=== PATIENT | male | born 1980 | race Hispanic/Latino ===

== ENCOUNTER 2017-06-16 09:20 | Observation (INO) | payer MEDICARE ==
[2017-06-16 09:30] VITALS: TEMP 98.5
[2017-06-16 09:31] VITALS: BMI 27.1
--- NOTE | 2017-06-16 10:39 | ED PDOC ---
HPI: Psych/Substance Abuse Time Seen by Provider: 06/16/17 09:38 Chief Complaint (Nursing): Ingestion, Accidental Chief Complaint (Provider): Ingestion, Accidental History Per: Patient, Family (Mother) Onset/Duration Of Symptoms: Hrs Current Symptoms Are (Timing): Still Present Additional Complaint(s): 36 y/o male with a past medical history of hypertension who presents to the emergency department accompanied by mother who accidentally gave patient 4 tablets of her prescribed medication, 50 mg extended-release Metoprolol (total of 200 mg). As per history from mother, she usually gives him his medication, Norvasc in the morning and Metoprolol 25 mg in the evening but made a mistake this morning, prior to arrival. Denies any further medical complaints. Past Medical History Reviewed: Historical Data, Nursing Documentation, Vital Signs Vital Signs: Last Vital Signs Temp 98.5 F 06/16/17 09:30 Pulse 102 H 06/16/17 09:30 Resp 20 06/16/17 09:30 BP 154/92 H 06/16/17 09:30 Pulse Ox 98 06/16/17 09:30 - Medical History PMH: Anxiety, Depression, HTN, Paranoia, Schizophrenia Denies: Chronic Kidney Disease - Surgical History Surgical History: No Surg Hx - Family History Family History: States: No Known Family Hx - Home Medications Home Medications: Ambulatory Orders Medication Instructions Recorded Benztropine Mesylate 2 mg PO BID 11/25/14 Clozapine 300 mg PO Q12H 11/25/14 Haloperidol [Haldol] 10 mg PO BID 11/25/14 Oxcarbazepine 150 mg PO BID 11/25/14 amLODIPine [Norvasc] 10 mg PO DAILY 11/25/14 Ciprofloxacin HCl [Cipro] 500 mg PO BID 12/14/14 - Allergies Allergies/Adverse Reactions: Allergies Allergy/AdvReac Type Severity Reaction Status Date / Time No Known Allergies Allergy Verified 11/25/14 09:14 Review of Systems ROS Statement: Except As Marked, All Systems Reviewed And Found Negative Constitutional: Positive for: Other (Accidental overdose of prescribed medications. Denies any further medical complaints) Physical Exam - Reviewed Nursing Documentation Reviewed: Yes Vital Signs Reviewed: Yes - Physical Exam Appears: Positive for: Non-toxic, No Acute Distress Head Exam: Positive for: ATRAUMATIC, NORMAL INSPECTION, NORMOCEPHALIC Skin: Positive for: Normal Color, Warm, Dry Eye Exam: Positive for: Normal appearance ENT: Positive for: Normal ENT Inspection Neck: Positive for: Normal, Supple Cardiovascular/Chest: Positive for: Regular Rate, Rhythm. Negative for: Murmur Respiratory: Positive for: Normal Breath Sounds. Negative for: Accessory Muscle Use, Respiratory Distress Gastrointestinal/Abdominal: Positive for: Normal Exam, Soft. Negative for: Tenderness Back: Positive for: Normal Inspection Extremity: Positive for: Normal ROM. Negative for: Pedal Edema Neurologic/Psych: Positive for: Alert, Oriented (x3) - Laboratory Results Result Diagrams: 06/16/17 10:20 06/16/17 10:20 - ECG O2 Sat by Pulse Oximetry: 98 (RA) Pulse Ox Interpretation: Normal Medical Decision Making Medical Decision Making: Time: 10:08 Initial impression: Accidental non-intentional overdose with beta misha Initial plan: --EKG --Acetaminophen --BMP --Magnesium --Salicylate --CBC w/ diff --EKG: Normal sinus with rate of 93 bpm. Normal QRS. No ST Changes. Time: 10:15 --EKG: Normal sinus rate of 70 bpm. Normal QRS. Normal ST changes. --Discussed case with poison control. Recommends observation for hypertension x8 hours because patient took extended release tablets. --No other recommendations were given. Time: 11:57 --Poison control wants patient to stay in ED on ED Observation due to beta misha overdose and monitor for hypertension and other complications --Admit to hospital routine: ED Obs Scribe Attestation: Documented by Maggie Tinoco, acting as a scribe for Soham Hansen MD. Provider Scribe Attestation: All medical record entries made by the Scribe were at my direction and personally dictated by me. I have reviewed the chart and agree that the record accurately reflects my personal performance of the history, physical exam, medical decision making, and the department course for this patient. I have also personally directed, reviewed, and agree with the discharge instructions and disposition. ED OBSERVATION Discharge: Yes Date of observation admission: 06/16/17 Time of observation admission: 11:57 - Observation admission statement Patient is being placed in observation because:: Betablocker overdose - Goals of Observation Goals of observation are:: Monitor for hypertension and other complications - Progress Note Progress Note: 06/16/17 1149 --Magenium Sulfate 1gm/100 ml IVPB 06/16/17 13:27 --Patient resting comfortably. 06/16/17 14:57 --Patient resting comfortably and pending clinical sobriety. Disposition - Clinical Impression Clinical Impression: Accidental drug ingestion - Patient ED Disposition Is Patient to be Admitted: Transfer of Care Counseled Patient/Family Regarding: Studies Performed, Diagnosis - Disposition Disposition: Transfer of Care Disposition Time: 15:00 Condition: GOOD Patient Signed Over To: Jelena Sanon
[2017-06-16 10:41] LABS: BASO # 0.1 K/uL (0.0-0.2); BASO % 0.9 % (0.0-2.0); EOS # 0.4 K/uL (0.0-0.7); EOS % 4.6 % (0.0-4.0); HEMATOCRIT 39.3 % (35.0-51.0); LYMPH % 20.5 % (20.0-40.0); MEAN CELL VOLUME 86.9 fl (80.0-94.0); MEAN CORPUSCULAR HEMOGLOBIN 29.4 pg (27.0-31.0); MEAN CORPUSCULAR HGB CONC 33.9 g/dL (33.0-37.0); MEAN PLATELET VOLUME 8.5 fl (7.2-11.7); MONO # 0.8 K/uL (0.0-0.8); MONO % 8.3 % (0.0-10.0); NEUT # 6.3 K/uL (1.8-7.0); NEUT % 65.7 % (50.0-75.0); RED CELL DISTRIBUTION WIDTH 13.8 % (11.5-14.5); WHITE BLOOD COUNT 9.6 K/uL (4.8-10.8)
[2017-06-16 10:48] LABS: CALCIUM 10.5 mg/dL (8.4-10.2); MAGNESIUM 1.4 MG/DL (1.6-2.3); POTASSIUM 4.1 MMOL/L (3.6-5.0)
[2017-06-16 11:19] VITALS: RESP 16
--- NOTE | 2017-06-16 15:16 | ED PDOC ---
- Laboratory Results Result Diagrams: 06/16/17 10:20 06/16/17 10:20 - ECG O2 Sat by Pulse Oximetry: 98 (RA) Pulse Ox Interpretation: Normal Medical Decision Making Medical Decision Making: Time: 15:00 --Patient endorsed from Dr. Hansen to me. --Placed on ED Observation at 11:57 Any further documentation will be included within ED Obs section of chart. Scribe Attestation: Documented by Maggie Tinoco, acting as a scribe for Jelena Sanon MD. Provider Scribe Attestation: All medical record entries made by the Scribe were at my direction and personally dictated by me. I have reviewed the chart and agree that the record accurately reflects my personal performance of the history, physical exam, medical decision making, and the department course for this patient. I have also personally directed, reviewed, and agree with the discharge instructions and disposition. Disposition - Clinical Impression Clinical Impression: Accidental drug ingestion - POA Present On Arrival: None - Disposition Disposition: Routine/Home Disposition Time: 16:55 Condition: GOOD ED OBSERVATION Discharge: Yes Date of observation admission: 06/16/17 Time of observation admission: 11:57 - Observation admission statement Patient is being placed in observation because:: Betablocker overdose - Goals of Observation Goals of observation are:: Monitor for hypertension and other complications - Progress Note Progress Note: 06/16/17 12:00 Patient is resting in his room. Vitals stable. 06/16/17 13:30 Patient is resting in his room. Vitals stable. 06/16/17 15:00 Patient is resting in his room. Vitals stable. 06/16/17 16:18 Patient is resting in his room. Vitals stable. 06/16/17 17:19 Stable for discharge. Pt asymptomatic. Vitals wnl.
[2017-06-16 17:11] VITALS: BP 157/96; PULSE 86
[2017-06-16 17:19] VITALS: O2SAT 98
--- NOTE | 2017-06-16 20:45 | CARD ---
APPROVED REPORT EKG Measurement Heart [id number] <Conclusion> Normal sinus rhythm Minimal voltage criteria for LVH, may be normal variant Borderline ECG
== END 2017-06-16 17:28 | disposition home or self-care (01) ==
LOC: H.ER 09:20 → H.EROBSV 11:57
PROVIDERS: ADMIT Emergency Medicine; ATTEND Emergency Medicine
DX: T44.7X1A Poisoning by beta-adrenoreceptor antagonists, accidental (unintentional), initial encounter (principal); F20.9 Schizophrenia, unspecified; F32.9 Major depressive disorder, single episode, unspecified; I10 Essential (primary) hypertension; F41.9 Anxiety disorder, unspecified; Y92.009 Unspecified place in unspecified non-institutional (private) residence as the place of occurrence of the external cause
CPT/HCPCS: 80048; 83735; 85025; 93005; 99283; G0378; G0480; J3475

== ENCOUNTER 2018-10-03 16:21 | Inpatient (IN) | payer MEDICARE ==
[2018-10-03 16:21] VITALS: BMI 27.1
[2018-10-03 19:21] LABS: BASO % 0.4 % (0.0-2.0); EOS # 0.3 K/uL (0.0-0.7); EOS % 2.8 % (0.0-4.0); LYMPH # 1.8 K/uL (1.0-4.3); LYMPH % 17.4 % (20.0-40.0); MEAN CELL VOLUME 88.5 fl (80.0-94.0); MEAN CORPUSCULAR HEMOGLOBIN 30.6 pg (27.0-31.0); MEAN CORPUSCULAR HGB CONC 34.6 g/dL (33.0-37.0); MEAN PLATELET VOLUME 8.8 fl (7.2-11.7); MONO # 0.8 K/uL (0.0-0.8); MONO % 7.6 % (0.0-10.0); NEUT # 7.3 K/uL (1.8-7.0); NEUT % 71.8 % (50.0-75.0); RBC 3.6 Mil/uL (4.40-5.90); RED CELL DISTRIBUTION WIDTH 13.8 % (11.5-14.5); WHITE BLOOD COUNT 10.2 K/uL (4.8-10.8)
[2018-10-03 19:28] LABS: ALB/GLOB RATIO 1.3 (1.0-2.1); ALBUMIN 4.4 g/dL (3.5-5.0); CALCIUM 11.1 mg/dL (8.4-10.2)
--- NOTE | 2018-10-03 19:40 | ED PDOC ---
HPI: General Adult Time Seen by Provider: 10/03/18 16:40 Chief Complaint (Nursing): Abnormal Labs Chief Complaint (Provider): Abnormal Labs History Per: Patient, Family (mother) History/Exam Limitations: no limitations Onset/Duration Of Symptoms: Days (x 1) Recently: Treated By A Physician Additional Complaint(s): 38 year old male with a history of bilateral hydronephrosis, schizoaffective disorder, bipolar disorder and HTN presents to the ED for evaluation. Patient reports that he follows up with Dr. León renal and receives regular ultrasounds. After his US today, patient was called by Dr. León's office and urged to visit the ED because of a change in his ultrasound. He denies any pain, nausea, vomiting and leg swelling. PMD: Dr. Harry Linton Past Medical History Reviewed: Historical Data, Nursing Documentation, Vital Signs Vital Signs: Last Vital Signs Temp 98.4 F 10/03/18 16:27 Pulse 103 H 10/03/18 16:27 Resp 20 10/03/18 16:27 BP 127/86 10/03/18 16:27 Pulse Ox 99 10/03/18 16:27 - Medical History PMH: Anxiety, Depression, HTN, Paranoia, Schizophrenia Denies: Chronic Kidney Disease - Surgical History Surgical History: Coronary Stent - Family History Family History: States: Unknown Family Hx - Social History Current smoker - smoking cessation education provided: Yes Alcohol: None Drugs: Denies - Home Medications Home Medications: Ambulatory Orders Medication Instructions Recorded RX: Benztropine Mesylate 2 mg PO BID 11/25/14 RX: Clozapine 300 mg PO Q12H 11/25/14 RX: Haloperidol [Haldol] 10 mg PO BID 11/25/14 RX: Oxcarbazepine 150 mg PO BID 11/25/14 RX: amLODIPine [Norvasc] 10 mg PO DAILY 11/25/14 Imipramine [Imipramine HCl] 25 mg PO BID 10/03/18 Metoprolol Tartrate [Lopressor] 50 mg PO DAILY 10/03/18 - Allergies Allergies/Adverse Reactions: Allergies Allergy/AdvReac Type Severity Reaction Status Date / Time No Known Allergies Allergy Verified 11/25/14 09:14 Review of Systems ROS Statement: Except As Marked, All Systems Reviewed And Found Negative Gastrointestinal: Negative for: Nausea, Vomiting, Abdominal Pain Musculoskeletal: Negative for: Back Pain, Leg Pain Physical Exam - Reviewed Nursing Documentation Reviewed: Yes Vital Signs Reviewed: Yes - Physical Exam Appears: Positive for: Non-toxic, No Acute Distress Head Exam: Positive for: ATRAUMATIC, NORMAL INSPECTION, NORMOCEPHALIC Skin: Positive for: Normal Color, Warm, Dry. Negative for: Rash Eye Exam: Positive for: EOMI, Normal appearance, PERRL ENT: Positive for: Normal ENT Inspection Neck: Positive for: Normal, Painless ROM, Supple Cardiovascular/Chest: Positive for: Regular Rate, Rhythm. Negative for: Murmur Respiratory: Positive for: Normal Breath Sounds. Negative for: Wheezing, Respiratory Distress Gastrointestinal/Abdominal: Positive for: Normal Exam, Soft. Negative for: Tenderness Back: Positive for: Normal Inspection Extremity: Positive for: Normal ROM (upper and lower extremities). Negative for: Deformity, Swelling Neurologic/Psych: Positive for: Alert, Oriented (x 3). Negative for: Motor/Sensory Deficits - Laboratory Results Result Diagrams: 10/03/18 18:58 10/03/18 18:58 - ECG O2 Sat by Pulse Oximetry: 99 (RA) Pulse Ox Interpretation: Normal Medical Decision Making Medical Decision Makin:20 Initial Plan: abnormal US sent for evaluation --CMP --CBC 20:48 --Spoke to Dr. León who reports US showed "severe left greater than right hydronephrosis. in comparisons to previous exam. no renal calculus. suggestive bladder obstruction" requests pt admission. --Consulted Dr. Andersen who is familiar w patient --Patient will be admitted to Dr. Hamm as he is a patient of Dr. Mathur's. 21:47 --Spoke to Dr. Andersen who said patient should be NPO after midnight for stent tomorrow. 21:51 --Patient was accepted by Dr. Hamm, hospitalist. pt and pts mother at bedside aware of admission. Scribe Attestation: Documented by Ada Hodges acting as a scribe for Michelle Lux MD Provider Scribe Attestation: All medical record entries made by the Scribe were at my direction and perso marcos dictated by me. I have reviewed the chart and agree that the record accurately reflects my personal performance of the history, physical exam, medical decision making, and the department course for this patient. I have also personally directed, reviewed, and agree with the discharge instructions and disposition. Disposition - Clinical Impression Clinical Impression: Hypertension, Obstructive uropathy, Renal insufficiency - Patient ED Disposition Is Patient to be Admitted: Yes Counseled Patient/Family Regarding: Studies Performed, Diagnosis, Need For Foll owup - Disposition Disposition Time: 21:30 Condition: STABLE
[2018-10-03 21:09] LABS: URINE BACTERIA RARE (<OCC); URINE BILIRUBIN NEGATIVE (NEGATIVE); URINE BLOOD NEGATIVE (NEGATIVE); URINE CLARITY CLEAR (Clear); URINE COLOR STRAW (YELLOW); URINE GLUCOSE (UA) NEG (NEGATIVE); URINE LEUKOCYTE ESTERASE NEG Leu/uL (Negative); URINE PROTEIN NEGATIVE (NEGATIVE); URINE UROBILINOGEN 0.2-1.0 mg/dL (0.2-1.0)
--- NOTE | 2018-10-03 22:05 | CP.PCM.HP ---
<HongMary ramírez - Last Filed: 10/03/18 23:14> History of Present Illness - History of Present Illness History of Present Illness: 38 year old male with a history of bilateral hydronephrosis, schizophrenia, bipolar disorder and HTN presents to the ED for evaluation of worsening hydronephrosis and renal function. Patient reports that he follows up with Dr. León. Patient went for renal US today and endorses was called by Dr. León's office and urged to visit the ED because of a change in his ultrasound. Also patient states ureteral stent placement on [address] Andersen. Patient reports feeling well and denies any pain, dysuria, hematuria, nausea, vomiting and leg swelling. ER provider called Dr León who reports US showed "severe left greater than right hydronephrosis in comparisons to previous exam. Suggestive bladder obstruction", no renal calculus. PMD: Dr. Harry Mtahur PMH: Anxiety, Depression, HTN, Schizophrenia, CKD Meds: reviewed with pt's mother PSH: b/l ureter stent 2014 NKDA FMH: denies SH: negative for etoh, tobacco or ilicit drugs use Present on Admission - Present on Admission Any Indicators Present on Admission: No Review of Systems - Review of Systems All systems: reviewed and no additional remarkable complaints except (HPI) Past Patient History - Infectious Disease Hx of Infectious Diseases: None - Past Medical History & Family History Past Medical History?: Yes - Past Social History Alcohol: None Drugs: Denies - CARDIAC Hx Hypertension: Yes - PULMONARY Hx Respiratory Disorders: No - NEUROLOGICAL Hx Neurological Disorder: No - HEENT Hx HEENT Problems: Yes Other/Comment: Reading glasses - RENAL Hx Chronic Kidney Disease: No - ENDOCRINE/METABOLIC Hx Endocrine Disorders: Yes Hx Diabetes Mellitus Type 2: No (PATIENT DENIES) Other/Comment: ?borderline DM - INTEGUMENTARY Hx Dermatological Problems: Yes Other/Comment: dry skin. chicken pox at 5 yrs old - MUSCULOSKELETAL/RHEUMATOLOGICAL Hx Musculoskeletal Disorders: No Hx Falls: No - GASTROINTESTINAL Hx Gastrointestinal Disorders: No - GENITOURINARY/GYNECOLOGICAL Hx Genitourinary Disorders: Yes Other/Comment: BILATERAL HYDRONEPHROSIS - PSYCHIATRIC Hx Anxiety: Yes Hx Depression: Yes Hx Paranoia: Yes Hx Schizophrenia: Yes - SURGICAL HISTORY Hx Coronary Stent: Yes - ANESTHESIA Hx Anesthesia: Yes Hx Anesthesia Reactions: No Hx Malignant Hyperthermia: No Meds Allergies/Adverse Reactions: Allergies Allergy/AdvReac Type Severity Reaction Status Date / Time No Known Allergies Allergy Verified 11/25/14 09:14 Physical Exam - Constitutional Appears: No Acute Distress Additional comments: mild anxious - Head Exam Head Exam: NORMAL INSPECTION - Eye Exam Eye Exam: EOMI Pupil Exam: PERRL - Respiratory Exam Respiratory Exam: Clear to Auscultation Bilateral, NORMAL BREATHING PATTERN - Cardiovascular Exam Cardiovascular Exam: REGULAR RHYTHM, +S1, +S2 - GI/Abdominal Exam GI & Abdominal Exam: Distended, Normal Bowel Sounds. absent: Tenderness - Extremities Exam Extremities exam: Negative for: pedal edema - Neurological Exam Neurological exam: Alert, CN II-XII Intact, Oriented x3 - Skin Skin Exam: Dry, Warm Results - Vital Signs Recent Vital Signs: Last Vital Signs Temp 98.4 F 10/03/18 16:27 Pulse 103 H 10/03/18 16:27 Resp 20 10/03/18 16:27 BP 127/86 10/03/18 16:27 Pulse Ox 99 10/03/18 21:52 - Labs Result Diagrams: 10/03/18 18:58 10/03/18 18:58 Labs: Laboratory Results - last 24 hr 10/03/18 10/03/18 10/03/18 18:58 18:58 20:50 WBC 10.2 RBC 3.60 L Hgb 11.0 L D Hct 31.9 L MCV 88.5 MCH 30.6 MCHC 34.6 RDW 13.8 Plt Count 227 MPV 8.8 Neut % (Auto) 71.8 Lymph % (Auto) 17.4 L [place] % (Auto) 7.6 Eos % (Auto) 2.8 Baso % (Auto) 0.4 Neut # (Auto) 7.3 H Lymph # (Auto) 1.8 [place] # (Auto) 0.8 Eos # (Auto) 0.3 Baso # (Auto) 0.0 Sodium 140 Potassium 4.6 Chloride 107 Carbon Dioxide 20 L Anion Gap 18 BUN 42 H Creatinine 2.8 H Est GFR ( Amer) 31 Est GFR (Non-Af Amer) 25 Random Glucose 111 H Calcium 11.1 H Total Bilirubin 0.5 AST 26 ALT 22 Alkaline Phosphatase 80 Total Protein 7.7 Albumin 4.4 Globulin 3.3 Albumin/Globulin Ratio 1.3 Urine Color Straw Urine Clarity Clear Urine pH 6.0 Ur Specific [place] 1.009 Urine Protein Negative Urine Glucose (UA) Neg Urine Ketones Negative Urine Blood Negative Urine Nitrate Negative Urine Bilirubin Negative Urine Urobilinogen 0.2-1.0 Ur Leukocyte Esterase Neg Urine RBC (Auto) < 1 Urine Microscopic WBC 3 Urine Bacteria Rare Assessment & Plan - Assessment and Plan (Free Text) Assessment: 38 yo male patient with PMH of obstructive uropathy s/p bilateral ureter stent, Schizophrenia and CKD admitted due to worsening in renal function and R hydronephrosis. Plan: Hydronephrosis/Obstructive uropathy - afebrile, asymptomatic, VSS - admit to med/surg - Urologist Dr Andersen consulted, patient for OR tomorrow - labs in am - NPO - Nephro Dr León, consulted Acute on CKD - BUN/Cr: 42/2.8 - IV fluids - f/u labs in am - Nephro Dr León, consulted HTN, chronic - controlled - resumed home meds - monitor BP Schizophrenia Bipolar disorder - stable, asymptomatic - continue home meds Case seen and examined with Dr Hamm. <Sahil Hamm - Last Filed: 10/04/18 01:12> Results - Vital Signs Recent Vital Signs: Last Vital Signs Temp 98.4 F 10/03/18 16:27 Pulse 103 H 10/03/18 16:27 Resp 20 10/03/18 16:27 BP 127/86 10/03/18 16:27 Pulse Ox 99 10/03/18 22:25 - Labs Result Diagrams: 10/03/18 18:58 10/03/18 18:58 Labs: Laboratory Results - last 24 hr 10/03/18 10/03/18 10/03/18 18:58 18:58 20:50 WBC 10.2 RBC 3.60 L Hgb 11.0 L D Hct 31.9 L MCV 88.5 MCH 30.6 MCHC 34.6 RDW 13.8 Plt Count 227 MPV 8.8 Neut % (Auto) 71.8 Lymph % (Auto) 17.4 L [place] % (Auto) 7.6 Eos % (Auto) 2.8 Baso % (Auto) 0.4 Neut # (Auto) 7.3 H Lymph # (Auto) 1.8 [place] # (Auto) 0.8 Eos # (Auto) 0.3 Baso # (Auto) 0.0 Sodium 140 Potassium 4.6 Chloride 107 Carbon Dioxide 20 L Anion Gap 18 BUN 42 H Creatinine 2.8 H Est GFR ( Amer) 31 Est GFR (Non-Af Amer) 25 Random Glucose 111 H Calcium 11.1 H Total Bilirubin 0.5 AST 26 ALT 22 Alkaline Phosphatase 80 Total Protein 7.7 Albumin 4.4 Globulin 3.3 Albumin/Globulin Ratio 1.3 Urine Color Straw Urine Clarity Clear Urine pH 6.0 Ur Specific [place] 1.009 Urine Protein Negative Urine Glucose (UA) Neg Urine Ketones Negative Urine Blood Negative Urine Nitrate Negative Urine Bilirubin Negative Urine Urobilinogen 0.2-1.0 Ur Leukocyte Esterase Neg Urine RBC (Auto) < 1 Urine Microscopic WBC 3 Urine Bacteria Rare Blood Type Antibody Screen BBK History Checked 10/03/18 22:24 WBC RBC Hgb Hct MCV MCH MCHC RDW Plt Count MPV Neut % (Auto) Lymph % (Auto) [place] % (Auto) Eos % (Auto) Baso % (Auto) Neut # (Auto) Lymph # (Auto) [place] # (Auto) Eos # (Auto) Baso # (Auto) Sodium Potassium Chloride Carbon Dioxide Anion Gap BUN Creatinine Est GFR ( Amer) Est GFR (Non-Af Amer) Random Glucose Calcium Total Bilirubin AST ALT Alkaline Phosphatase Total Protein Albumin Globulin Albumin/Globulin Ratio Urine Color Urine Clarity Urine pH Ur Specific [place] Urine Protein Urine Glucose (UA) Urine Ketones Urine Blood Urine Nitrate Urine Bilirubin Urine Urobilinogen Ur Leukocyte Esterase Urine RBC (Auto) Urine Microscopic WBC Urine Bacteria Blood Type O POSITIVE Antibody Screen Negative BBK History Checked No verified bt Attending/Attestation - Attestation I have personally seen and examined this patient.: Yes I have fully participated in the care of the patient.: Yes I have reviewed all pertinent clinical information: Yes Notes (Text): 10/04/18 01:01 i saw and examined this patient shoulder to shoulder with Dr Hong. I agree with the assessment and plan outlined above. This is a 38 years old male with hx of chronic renal failure and Hydronephrosis with Bilateral ureteral stent inserted in 2014. His Welder Fitter Apprentice ordered an UltraSound which showed severe left more than right Hydronephrosis. Consult Dr Andersen urologist and Dr León the Welder Fitter Apprentice. The Patient will haven nothing by mouth after midnight and is due for a new Ureteral stent in the AM. IV fluids will be started for Dehydration and Acute on chronic Renal Failure. Continue treatment for Psychiatric disorders. Sahil Hamm MD
[2018-10-03] MEDS ORDERED: CLOZAPINE 300 MG PO SCH ×2 (22:45→22:53)
[2018-10-03] MEDS: Lactated Ringer's 1,000 ML IV SCH (23:21)
[2018-10-04] MEDS: Lactated Ringer's 1,000 ML IV SCH ×3 (04:30→22:30)
[2018-10-04 06:51] LABS: BASO # 0.1 K/uL (0.0-0.2); BASO % 0.7 % (0.0-2.0); EOS # 0.4 K/uL (0.0-0.7); EOS % 3.9 % (0.0-4.0); HEMOGLOBIN 10.8 g/dL (12.0-18.0); LYMPH # 2.4 K/uL (1.0-4.3); LYMPH % 24.7 % (20.0-40.0); MEAN CELL VOLUME 88.5 fl (80.0-94.0); MEAN CORPUSCULAR HEMOGLOBIN 30.4 pg (27.0-31.0); MEAN CORPUSCULAR HGB CONC 34.3 g/dL (33.0-37.0); MEAN PLATELET VOLUME 8.1 fl (7.2-11.7); MONO # 0.9 K/uL (0.0-0.8); MONO % 9.7 % (0.0-10.0); NEUT # 5.8 K/uL (1.8-7.0); RBC 3.56 Mil/uL (4.40-5.90); RED CELL DISTRIBUTION WIDTH 13.7 % (11.5-14.5); WHITE BLOOD COUNT 9.6 K/uL (4.8-10.8)
[2018-10-04 07:11] LABS: ALB/GLOB RATIO 1.4 (1.0-2.1); ALBUMIN 4.1 g/dL (3.5-5.0); CALCIUM 10.9 mg/dL (8.4-10.2)
[2018-10-04 07:33] LABS: INR 1.1; PROTHROMBIN TIME 12.9 Seconds (9.8-13.1)
[2018-10-04 07:35] LABS: PARTIAL THROMBOPLASTIN TIME 38.6 Seconds (25.6-37.1)
--- NOTE | 2018-10-04 09:00 | CP.PCM.PN ---
<Gin Franco - Last Filed: 10/04/18 14:29> Subjective - Date & Time of Evaluation Date of Evaluation: 10/04/18 Time of Evaluation: 08:58 - Subjective Subjective: 38 year old male with a history of bilateral hydronephrosis, schizophrenia, bipolar disorder and HTN presents to the ED for evaluation of worsening hydronephrosis and renal function. Patient reports that he follows up with Dr. León. Patient is aware of the new procedure today- new ureteral stent. Patient admits to being NPO. Denies any acute overnight events. Objective - Vital Signs/Intake and Output Vital Signs (last 24 hours): Temp Pulse Resp BP Pulse Ox 98.5 F 99 H 18 142/90 99 10/04/18 08:13 10/04/18 08:13 10/04/18 08:13 10/04/18 08:13 10/04/18 08:13 - Medications Medications: Current Medications Amlodipine Besylate (Norvasc) 10 mg PO DAILY [facility] Benztropine Mesylate (Cogentin) 1 mg PO BID [facility] Haloperidol (Haldol) 5 mg PO DAILY [facility] Haloperidol (Haldol) 10 mg PO HS [facility] Home Med (Clozapine [Clozapine]) 100 mg PO Q12H [facility] Lactated Ringer's (Lactated Ringer's) 1,000 mls @ 100 mls/hr IV .Q10H [facility] Last Admin: 10/03/18 23:21 Dose: 100 mls/hr Imipramine HCl (Tofranil) 25 mg PO BID [facility] Last Admin: 10/03/18 23:22 Dose: Not Given Metoprolol Tartrate (Lopressor) 50 mg PO DAILY [facility] Oxcarbazepine (Trileptal) 150 mg PO BID [facility] Last Admin: 10/03/18 23:23 Dose: Not Given Ranitidine HCl (Zantac Soln 5ml) 150 mg PO BID [facility] - Labs Labs: 10/04/18 06:35 10/04/18 06:35 PT 12.9 Seconds (9.8-13.1) 10/04/18 06:35 INR 1.1 10/04/18 06:35 APTT 38.6 Seconds (25.6-37.1) H 10/04/18 06:35 - Constitutional Appears: Well, Non-toxic, No Acute Distress - Head Exam Head Exam: ATRAUMATIC - Eye Exam Eye Exam: EOMI, Normal appearance, PERRL Pupil Exam: NORMAL ACCOMODATION - ENT Exam ENT Exam: Mucous Membranes Moist - Neck Exam Neck Exam: Normal Inspection - Respiratory Exam Respiratory Exam: Clear to Ausculation Bilateral, NORMAL BREATHING PATTERN - Cardiovascular Exam Cardiovascular Exam: REGULAR RHYTHM, +S1, +S2 - GI/Abdominal Exam GI & Abdominal Exam: Normal Bowel Sounds - Extremities Exam Extremities Exam: Normal Inspection - Back Exam Back Exam: NORMAL INSPECTION - Neurological Exam Neurological Exam: Alert, Awake Assessment and Plan - Assessment and Plan (Free Text) Assessment: 38 yo male patient with PMH of obstructive uropathy s/p bilateral ureter stent, Schizophrenia and CKD admitted due to worsening in renal function and R hydronephrosis. Plan: Hydronephrosis/Obstructive uropathy - afebrile, asymptomatic, VSS - admit to med/surg - Urologist Dr Andersen consulted, patient for OR today new ureteral stent - Dr Andersen recommends patient be admitted. - CT of the abdomen and pelvis without contrast ordered - Regular diet - Nephro Dr León, consulted Acute on CKD - BUN/Cr: 37/2.9; f/u on daily BMP - IV fluids - Nephro Dr León, consulted; recs appreciated HTN, chronic - controlled - resumed home meds - monitor BP Schizophrenia Bipolar disorder - stable, asymptomatic - continue home meds Code status: unknown <Yanet Carter - Last Filed: 10/04/18 15:46> Objective - Vital Signs/Intake and Output Vital Signs (last 24 hours): Temp Pulse Resp BP Pulse Ox 99.1 F 91 H 18 141/87 98 10/04/18 13:20 10/04/18 13:35 10/04/18 13:35 10/04/18 13:35 10/04/18 13:35 Intake and Output: 10/04/18 10/04/18 06:59 18:59 Intake Total 400 Balance 400 - Medications Medications: Current Medications Amlodipine Besylate (Norvasc) 10 mg PO DAILY [facility] Last Admin: 10/04/18 09:06 Dose: 10 mg Benztropine Mesylate (Cogentin) 1 mg PO BID [facility] Last Admin: 10/04/18 09:07 Dose: Not Given Haloperidol (Haldol) 5 mg PO DAILY [facility] Last Admin: 10/04/18 09:07 Dose: Not Given Haloperidol (Haldol) 10 mg PO HS [facility] Home Med (Clozapine [Clozapine]) 100 mg PO Q12H [facility] Lactated Ringer's (Lactated Ringer's) 1,000 mls @ 100 mls/hr IV .Q10H [facility] Last Admin: 10/04/18 09:43 Dose: 100 mls/hr Lactated Ringer's (Lactated Ringer's) 1,000 mls @ 100 mls/hr IV .Q10H [facility] Imipramine HCl (Tofranil) 25 mg PO BID [facility] Last Admin: 10/04/18 09:05 Dose: Not Given Metoprolol Tartrate (Lopressor) 50 mg PO DAILY [facility] Last Admin: 10/04/18 09:07 Dose: Not Given Oxcarbazepine (Trileptal) 150 mg PO BID [facility] Last Admin: 10/04/18 09:08 Dose: 150 mg Ranitidine HCl (Zantac Soln 5ml) 150 mg PO BID [facility] Last Admin: 10/04/18 09:08 Dose: Not Given - Labs Labs: 10/04/18 06:35 10/04/18 06:35 PT 12.9 Seconds (9.8-13.1) 10/04/18 06:35 INR 1.1 10/04/18 06:35 APTT 38.6 Seconds (25.6-37.1) H 10/04/18 06:35 Attending/Attestation - Attestation I have personally seen and examined this patient.: Yes I have fully participated in the care of the patient.: Yes I have reviewed all pertinent clinical information, including history, physical exam and plan: Yes Notes (Text): 10/04/18 15:45 agree with findings and plan as above. went to OR for stent, however unable to be placed today Urology will continue to follow admit pt , trend chem for renal function. will likely reattempt via IR?
[2018-10-04] MEDS: raNITIdine HCl 150 mg/10 ml Soln Cup PO SCH ×2 (09:08→18:19)
[2018-10-04] MEDS ORDERED: Propofol 10 mg/ml Inj (20 ML) ONE (11:07)
[2018-10-04] MEDS ORDERED: Midazolam 2 MG/2 ML VIAL ONE (11:07)
[2018-10-04] MEDS ORDERED: Lactated Ringer's 1,000 ML IV ONE (11:25)
[2018-10-04] MEDS ORDERED: cefTRIAXone (Rocephin) 1 gm Inj ONE (11:30)
[2018-10-04] MEDS ORDERED: Iohexol 240 200 ML IJ ONE (11:30)
[2018-10-04] MEDS ORDERED: cefTRIAXone (Rocephin) 1 gm Inj IM ONE (11:30)
[2018-10-04] MEDS ORDERED: HYDROmorphone 0.5 mg/0.5 ml ISec IVP PRN (12:25)
--- NOTE | 2018-10-04 13:15 | RAD ---
HISTORY: pre op COMPARISON: Chest x-ray performed 11/27/14 TECHNIQUE: Chest PA and lateral FINDINGS: LUNGS: No focal consolidation. Please note that chest x-ray has limited sensitivity for the detection of pulmonary masses. PLEURA: No significant pleural effusion identified. No definite pneumothorax . CARDIOVASCULAR: Heart size appears within normal limits. No atherosclerotic calcification present. OSSEOUS STRUCTURES: Degenerative changes. VISUALIZED UPPER ABDOMEN: Unremarkable. OTHER FINDINGS: None. IMPRESSION: No focal consolidation.
--- NOTE | 2018-10-04 15:28 | CARD ---
APPROVED REPORT Date of service: 10/03/2018 EKG Measurement Heart [id number] <Conclusion> Normal sinus rhythm Nonspecific T wave abnormality Abnormal ECG
--- NOTE | 2018-10-04 15:28 | RAD ---
Date of service: 10/04/2018 PROCEDURE: Intraoperative Fluoroscopy. HISTORY: CYSTOSCOPY FINDINGS: Fluoroscopic assistance was provided. Please refer to the operative report for additional details.
--- NOTE | 2018-10-04 16:16 | CP.PCM.CON ---
History of Present Illness - History of Present Illness History of Present Illness: This patient who is 38 years of age male presented to the emergency room with worsening bilateral hydronephrosis when he was done yesterday as outpatient and patient was sent to the ER for further evaluation. Patient has history of renal failure with obstructive uropathy and bilateral stent was inserted 2015 temporarily at that time and the ultrasound showed worsening of the hydronephrosis. Has history of schizophrenia and he is taking multiple medication as noted also history of constipation ER provider called Dr León who reports US showed "severe left greater than right hydronephrosis in comparisons to previous exam. Suggestive bladder obstruction", no renal calculus. PMH: Anxiety, Depression, HTN, Schizophrenia, CKD Meds: reviewed with pt's mother PSH: b/l ureter stent 2014 NKDA FMH: denies SH: negative for etoh, tobacco or ilicit drugs use Review of Systems - Constitutional Constitutional: Anorexia. absent: Chills - Cardiovascular Cardiovascular: absent: Acrocyanosis, Chest Pain, Dyspnea - Respiratory Respiratory: absent: Cough, Dyspnea - Gastrointestinal Gastrointestinal: absent: Abdominal Pain, Coffee Ground Emesis - Genitourinary Genitourinary: Nocturia - Musculoskeletal Musculoskeletal: absent: Back Pain, Numbness - Integumentary Integumentary: absent: Alopecia - Neurological Neurological: absent: Confusion, Dizziness, Focal Weakness - Psychiatric Psychiatric: As Per HPI, Anxiety - Endocrine Endocrine: absent: Fatigue - Hematologic/Lymphatic Hematologic: absent: Easy Bleeding Past Patient History - Infectious Disease Hx of Infectious Diseases: None - Past Medical History & Family History Past Medical History?: Yes - Past Social History Alcohol: None Drugs: Denies - CARDIAC Hx Hypertension: Yes - PULMONARY Hx Respiratory Disorders: No - NEUROLOGICAL Hx Neurological Disorder: No - HEENT Hx HEENT Problems: Yes Other/Comment: Reading glasses - RENAL Hx Chronic Kidney Disease: No - ENDOCRINE/METABOLIC Hx Endocrine Disorders: Yes Hx Diabetes Mellitus Type 2: No (PATIENT DENIES) Other/Comment: ?borderline DM - INTEGUMENTARY Hx Dermatological Problems: Yes Other/Comment: dry skin. chicken pox at 5 yrs old - MUSCULOSKELETAL/RHEUMATOLOGICAL Hx Musculoskeletal Disorders: No Hx Falls: No - GASTROINTESTINAL Hx Gastrointestinal Disorders: No - GENITOURINARY/GYNECOLOGICAL Hx Genitourinary Disorders: Yes Other/Comment: BILATERAL HYDRONEPHROSIS - PSYCHIATRIC Hx Anxiety: Yes Hx Depression: Yes Hx Paranoia: Yes Hx Schizophrenia: Yes - SURGICAL HISTORY Hx Coronary Stent: Yes - ANESTHESIA Hx Anesthesia: Yes Hx Anesthesia Reactions: No Hx Malignant Hyperthermia: No Meds Allergies/Adverse Reactions: Allergies Allergy/AdvReac Type Severity Reaction Status Date / Time No Known Allergies Allergy Verified 11/25/14 09:14 - Medications Medications: Current Medications Amlodipine Besylate (Norvasc) 10 mg PO DAILY [facility] Last Admin: 10/04/18 09:06 Dose: 10 mg Benztropine Mesylate (Cogentin) 1 mg PO BID [facility] Last Admin: 10/04/18 09:07 Dose: Not Given Haloperidol (Haldol) 5 mg PO DAILY [facility] Last Admin: 10/04/18 09:07 Dose: Not Given Haloperidol (Haldol) 10 mg PO HS [facility] Home Med (Clozapine [Clozapine]) 100 mg PO Q12H [facility] Lactated Ringer's (Lactated Ringer's) 1,000 mls @ 100 mls/hr IV .Q10H [facility] Last Admin: 10/04/18 09:43 Dose: 100 mls/hr Lactated Ringer's (Lactated Ringer's) 1,000 mls @ 100 mls/hr IV .Q10H [facility] Imipramine HCl (Tofranil) 25 mg PO BID [facility] Last Admin: 10/04/18 09:05 Dose: Not Given Metoprolol Tartrate (Lopressor) 50 mg PO DAILY [facility] Last Admin: 10/04/18 09:07 Dose: Not Given Oxcarbazepine (Trileptal) 150 mg PO BID [facility] Last Admin: 10/04/18 09:08 Dose: 150 mg Ranitidine HCl (Zantac Soln 5ml) 150 mg PO BID [facility] Last Admin: 10/04/18 09:08 Dose: Not Given Physical Exam - Constitutional Appears: No Acute Distress - ENT Exam ENT Exam: Mucous Membranes Dry - Neck Exam Neck exam: Negative for: Lymphadenopathy - Respiratory Exam Respiratory Exam: NORMAL BREATHING PATTERN. absent: Chest Wall Tenderness - Cardiovascular Exam Cardiovascular Exam: absent: Gallop, REGULAR RHYTHM, JVD, Rubs - Extremities Exam Extremities exam: Negative for: calf tenderness - Back Exam Back exam: absent: CVA tenderness (L), CVA tenderness (R) - Neurological Exam Neurological exam: Alert - Psychiatric Exam Psychiatric exam: Normal Affect Results - Vital Signs Recent Vital Signs: Last Vital Signs Temp 99.1 F 10/04/18 13:20 Pulse 91 H 10/04/18 13:35 Resp 18 10/04/18 13:35 BP 141/87 10/04/18 13:35 Pulse Ox 98 10/04/18 13:35 - Labs Result Diagrams: 10/04/18 06:35 10/04/18 06:35 Labs: Laboratory Results - last 24 hr 10/03/18 10/03/18 10/03/18 18:58 18:58 20:50 WBC 10.2 RBC 3.60 L Hgb 11.0 L D Hct 31.9 L MCV 88.5 MCH 30.6 MCHC 34.6 RDW 13.8 Plt Count 227 MPV 8.8 Neut % (Auto) 71.8 Lymph % (Auto) 17.4 L [place] % (Auto) 7.6 Eos % (Auto) 2.8 Baso % (Auto) 0.4 Neut # (Auto) 7.3 H Lymph # (Auto) 1.8 [place] # (Auto) 0.8 Eos # (Auto) 0.3 Baso # (Auto) 0.0 PT INR APTT Sodium 140 Potassium 4.6 Chloride 107 Carbon Dioxide 20 L Anion Gap 18 BUN 42 H Creatinine 2.8 H Est GFR ( Amer) 31 Est GFR (Non-Af Amer) 25 Random Glucose 111 H Calcium 11.1 H Total Bilirubin 0.5 AST 26 ALT 22 Alkaline Phosphatase 80 Total Protein 7.7 Albumin 4.4 Globulin 3.3 Albumin/Globulin Ratio 1.3 Urine Color Straw Urine Clarity Clear Urine pH 6.0 Ur Specific [place] 1.009 Urine Protein Negative Urine Glucose (UA) Neg Urine Ketones Negative Urine Blood Negative Urine Nitrate Negative Urine Bilirubin Negative Urine Urobilinogen 0.2-1.0 Ur Leukocyte Esterase Neg Urine RBC (Auto) < 1 Urine Microscopic WBC 3 Urine Bacteria Rare Blood Type Blood Type Confirm Antibody Screen BBK History Checked 10/03/18 10/04/18 10/04/18 22:24 06:35 06:35 WBC 9.6 RBC 3.56 L Hgb 10.8 L Hct 31.5 L MCV 88.5 MCH 30.4 MCHC 34.3 RDW 13.7 Plt Count 219 MPV 8.1 Neut % (Auto) 61.0 Lymph % (Auto) 24.7 [place] % (Auto) 9.7 Eos % (Auto) 3.9 Baso % (Auto) 0.7 Neut # (Auto) 5.8 Lymph # (Auto) 2.4 [place] # (Auto) 0.9 H Eos # (Auto) 0.4 Baso # (Auto) 0.1 PT INR APTT Sodium 142 Potassium 4.0 Chloride 109 H Carbon Dioxide 20 L Anion Gap 17 BUN 37 H Creatinine 2.9 H Est GFR ( Amer) 29 Est GFR (Non-Af Amer) 24 Random Glucose 94 Calcium 10.9 H Total Bilirubin 0.2 AST 16 L D ALT 22 Alkaline Phosphatase 76 Total Protein 7.2 Albumin 4.1 Globulin 3.0 Albumin/Globulin Ratio 1.4 Urine Color Urine Clarity Urine pH Ur Specific [place] Urine Protein Urine Glucose (UA) Urine Ketones Urine Blood Urine Nitrate Urine Bilirubin Urine Urobilinogen Ur Leukocyte Esterase Urine RBC (Auto) Urine Microscopic WBC Urine Bacteria Blood Type O POSITIVE Blood Type Confirm Antibody Screen Negative BBK History Checked No verified bt 10/04/18 10/04/18 06:35 10:28 WBC RBC Hgb Hct MCV MCH MCHC RDW Plt Count MPV Neut % (Auto) Lymph % (Auto) [place] % (Auto) Eos % (Auto) Baso % (Auto) Neut # (Auto) Lymph # (Auto) [place] # (Auto) Eos # (Auto) Baso # (Auto) PT 12.9 INR 1.1 APTT 38.6 H Sodium Potassium Chloride Carbon Dioxide Anion Gap BUN Creatinine Est GFR ( Amer) Est GFR (Non-Af Amer) Random Glucose Calcium Total Bilirubin AST ALT Alkaline Phosphatase Total Protein Albumin Globulin Albumin/Globulin Ratio Urine Color Urine Clarity Urine pH Ur Specific [place] Urine Protein Urine Glucose (UA) Urine Ketones Urine Blood Urine Nitrate Urine Bilirubin Urine Urobilinogen Ur Leukocyte Esterase Urine RBC (Auto) Urine Microscopic WBC Urine Bacteria Blood Type Blood Type Confirm O POSITIVE Antibody Screen BBK History Checked Assessment & Plan (1) Hypertension Status: Acute (2) Obstructive uropathy Status: Acute (3) Acute kidney injury Assessment and Plan: Acute kidney injury superimposed on chronic kidney disease perhaps related to obstructive uropathy with bilateral hydronephrosis worsening comparing to the previous one. Patient just came out of the operating room I am told by the nurse that he has suprapubic and extraction of the stone although no . report from the urologist on the chart as of yet The plan Continue IV fluid Repeat BMP tomorrow its expected that his kidney function will improve perhaps. And the patient keeps saying he is going home now?? Order serum phosphorus and PTH for staying in the hospital. Status: Acute (4) Schizophrenia Status: Acute
--- NOTE | 2018-10-04 20:50 | CP.PCM.PN ---
Subjective - Date & Time of Evaluation Date of Evaluation: 10/04/18 Time of Evaluation: 20:48 - Subjective Subjective: UROLOGY pt has suprapubic ube placed because i could not access bladdere out flow tonight almost clear. advise iv antgibiotics monitor I asnd O and update labs in am Objective - Vital Signs/Intake and Output Vital Signs (last 24 hours): Temp Pulse Resp BP Pulse Ox 98.8 F 112 H 20 148/97 H 98 10/04/18 19:15 10/04/18 19:15 10/04/18 19:15 10/04/18 19:15 10/04/18 19:15 Intake and Output: 10/04/18 10/05/18 18:59 06:59 Intake Total 700 Output Total 750 Balance -50 - Medications Medications: Current Medications Amlodipine Besylate (Norvasc) 10 mg PO DAILY [facility] Last Admin: 10/04/18 09:06 Dose: 10 mg Benztropine Mesylate (Cogentin) 1 mg PO BID [facility] Last Admin: 10/04/18 18:19 Dose: 1 mg Haloperidol Lactate (Haldol) 10 mg PO HS [facility] Haloperidol Lactate (Haldol) 5 mg PO DAILY [facility] Home Med (Clozapine [Clozapine]) 100 mg PO Q12H [facility] Lactated Ringer's (Lactated Ringer's) 1,000 mls @ 100 mls/hr IV .Q10H [facility] Last Admin: 10/04/18 09:43 Dose: 100 mls/hr Lactated Ringer's (Lactated Ringer's) 1,000 mls @ 100 mls/hr IV .Q10H [facility] Imipramine HCl (Tofranil) 25 mg PO BID [facility] Last Admin: 10/04/18 18:20 Dose: 25 mg Metoprolol Tartrate (Lopressor) 50 mg PO DAILY [facility] Last Admin: 10/04/18 09:07 Dose: Not Given Oxcarbazepine (Trileptal) 150 mg PO BID [facility] Last Admin: 10/04/18 17:18 Dose: 150 mg Ranitidine HCl (Zantac Soln 5ml) 150 mg PO BID [facility] Last Admin: 10/04/18 18:19 Dose: 150 mg - Labs Labs: 10/04/18 06:35 10/04/18 06:35 PT 12.9 Seconds (9.8-13.1) 10/04/18 06:35 INR 1.1 10/04/18 06:35 APTT 38.6 Seconds (25.6-37.1) H 10/04/18 06:35
[2018-10-04] MEDS: Haloperidol Lactate 2 mg/ml Liquid PO SCH (21:32)
[2018-10-05] MEDS: Lactated Ringer's 1,000 ML IV SCH ×4 (00:44→22:18)
--- NOTE | 2018-10-05 02:20 | PN ---
DATE: 10/04/2018 POSTOP PROGRESS NOTE This is a gentleman who earlier today I attempted cystoscopy and tried to place double-J stent, and right from the beginning, the access into the bladder was next to impossible. He has a severe welling up of the prostatic floor, and so from the level of the prostatic urethra, I was not able to safely push the cystoscope into the bladder. He had some bladder neck stones that were taken out. By that time with this manipulation, he then became significantly hematuric. At that point, I could not see anything further. I did a retrograde cystogram and did see that the bladder was severely distended, and so at that time, I put in a suprapubic tube and the urine began to flow from that area. Postoperatively, I spoke to several people, I spoke to Dr. Villafuerte for Interventional Radiology considering the possibility of doing bilateral nephrostomy tube placement, and in the discussion, we will keep that as a thought in mind but give the attempt at the decompression via the suprapubic tube to see if that will help start to improve the clinical numbers of BUN and creatinine and then hopefully decompress the kidneys as a consequence. If he does not have sufficient urinary flow within the next 24 hours then it might be prudent to insert the suprapubic tubes. Beyond there, I spoke with Dr. Hamm considering a short-term care and knowing that sometimes when significant obstructive uropathy is unblocked he might develop a post-obstructive diuresis, so I indicated to him about managing hourly outputs and making sure that he has enough IV fluid support in case the post-obstructive diuresis becomes significant. In the morning, I suggested that they repeat a blood work to see if there is any change in his creatinine and assess the urine output as needed. These are the comments as of Sunday night 9 o'clock. Chloe Andersen MD
--- NOTE | 2018-10-05 05:56 | CON ---
DATE: 10/03/2018 HISTORY OF PRESENT ILLNESS: This is a 38-year-old male patient who was in the emergency room, I received a call about this patient having severe left and right hydronephrosis. Apparently, he has a history of this condition, but from his last evaluation, the report reads that the condition has worsened significantly. His creatinine at time in the emergency room now is 2.8, prior to this it was 1.4. The patient has some psychological disorders but is not feeling any acute pain at this time. His only comments from his mom is that the patient is constantly voiding and have the urge to void every several minutes. He also has a history of severe constipation that he only goes once a week, and at that time, it is very difficult for him to have bowel movements. PLAN: I recommended that at this time we will prepare the patient for cystoscopy and placement of double J stents to decompress the kidney. Hopefully, that will help reduce the BUN and creatinine and bring him into a more stable condition. This will be scheduled first thing for Sunday. Chloe Andersen MD
--- NOTE | 2018-10-05 07:51 | OP ---
PROCEDURE DATE: 10/04/2018 PREOPERATIVE DIAGNOSIS: Bilateral hydronephrosis. POSTOPERATIVE DIAGNOSES: Bilateral hydronephrosis, urinary retention, bladder neck calculi. PROCEDURE PERFORMED: Cystoscopy with removal of multiple bladder neck calculi and insertion of a suprapubic tube. SURGEON: Chloe Andersen MD. DESCRIPTION OF PROCEDURE: The patient placed in the operating table in dorsal lithotomy position. Given general anesthesia, the area of the groin was draped and prepped. At this time I tried with a #21 cystoscope to enter into the bladder atraumatically. I got to the level of the verumontanum. At that point, the bladder was way up high. I could not negotiate the cystoscope safely over this mass effect. It is pushing from the bottom and not letting me gain access into the bladder. As I went through, I saw some bladder neck stones which I removed, probably about 4 or 5 mm in size, but I could not gain safely access into the bladder. I did a retrograde with some contrast and I could see that the bladder was severely distended and did not appear to be extravasating any dye outside the bladder confines. So at this point, then I removed the cystoscope after multiple tries to try to get it in. I put in a suprapubic tube from the top of Alena catheter and the urine outflow was only a very pale pink, but at least it started to come out and I fixed it into the lower portion of the abdomen. At this point the suprapubic tube will stay in for a while to see if the patient decompresses adequately. The cystoscope was removed. The patient then was taken from the operating room in good condition. Chloe Andersen MD
[2018-10-05] MEDS: Haloperidol Lactate 2 mg/ml Liquid PO SCH ×2 (09:45→21:29)
[2018-10-05] MEDS: raNITIdine HCl 150 mg/10 ml Soln Cup PO SCH ×2 (09:49→16:38)
[2018-10-05 09:53] LABS: CALCIUM 9.4 mg/dL (8.4-10.2)
[2018-10-05 11:21] LABS: IRON 39 ug/dL (49-181)
[2018-10-05 11:31] LABS: % IRON SATURATION 16 % (20-55); TOTAL IRON BINDING CAPACITY 247 ug/dL (250-450)
--- NOTE | 2018-10-05 11:46 | CP.PCM.PN ---
Subjective - Date & Time of Evaluation Date of Evaluation: 10/05/18 Time of Evaluation: 10:35 - Subjective Subjective: 38 y/o M was evaluated and examined by bedside. Pt reports feeling well, no acute complaints. Suprapubic catheter in placed, pink urine present on bag. Cytoscopy with removal of multiple bladder neck calculi. Pt afebrile, tolerating PO, with NO acute events overnight. Objective - Vital Signs/Intake and Output Vital Signs (last 24 hours): Temp Pulse Resp BP Pulse Ox 98.6 F 99 H 20 118/82 98 10/05/18 08:43 10/05/18 08:43 10/05/18 08:43 10/05/18 08:43 10/05/18 08:43 Intake and Output: 10/05/18 10/05/18 06:59 18:59 Intake Total 1100 Output Total 850 Balance 250 - Medications Medications: Current Medications Amlodipine Besylate (Norvasc) 10 mg PO DAILY [facility] Last Admin: 10/05/18 09:48 Dose: 10 mg Benztropine Mesylate (Cogentin) 1 mg PO BID [facility] Last Admin: 10/05/18 09:46 Dose: 1 mg Haloperidol Lactate (Haldol) 10 mg PO HS [facility] Last Admin: 10/04/18 21:32 Dose: 10 mg Haloperidol Lactate (Haldol) 5 mg PO DAILY [facility] Last Admin: 10/05/18 09:45 Dose: 5 mg Home Med (Clozapine [Clozapine]) 100 mg PO Q12H [facility] Lactated Ringer's (Lactated Ringer's) 1,000 mls @ 100 mls/hr IV .Q10H [facility] Last Admin: 10/05/18 00:44 Dose: 100 mls/hr Lactated Ringer's (Lactated Ringer's) 1,000 mls @ 100 mls/hr IV .Q10H [facility] Last Admin: 10/05/18 09:08 Dose: 100 mls/hr Imipramine HCl (Tofranil) 25 mg PO BID [facility] Last Admin: 10/05/18 10:40 Dose: 25 mg Metoprolol Tartrate (Lopressor) 50 mg PO DAILY [facility] Last Admin: 10/05/18 09:46 Dose: 50 mg Oxcarbazepine (Trileptal) 150 mg PO BID [facility] Last Admin: 12/22/18 09:49 Dose: 150 mg Ranitidine HCl (Zantac Soln 5ml) 150 mg PO BID [facility] Last Admin: 10/05/18 09:49 Dose: 150 mg Tamsulosin HCl (Flomax) 0.4 mg PO DAILY [facility] Last Admin: 10/05/18 10:40 Dose: 0.4 mg - Labs Labs: 10/04/18 06:35 10/05/18 09:02 PT 12.9 Seconds (9.8-13.1) 10/04/18 06:35 INR 1.1 10/04/18 06:35 APTT 38.6 Seconds (25.6-37.1) H 10/04/18 06:35 - Constitutional Appears: Well, No Acute Distress - Head Exam Head Exam: ATRAUMATIC, NORMAL INSPECTION - Eye Exam Eye Exam: EOMI, PERRL - ENT Exam ENT Exam: Mucous Membranes Moist - Neck Exam Neck Exam: Full ROM, Normal Inspection. absent: Lymphadenopathy - Respiratory Exam Respiratory Exam: NORMAL BREATHING PATTERN. absent: Rhonchi, Wheezes, Respiratory Distress - Cardiovascular Exam Cardiovascular Exam: REGULAR RHYTHM, +S1, +S2 - GI/Abdominal Exam GI & Abdominal Exam: Soft, Normal Bowel Sounds. absent: Guarding, Rigid, Tender ness - Extremities Exam Extremities Exam: Full ROM, Normal Inspection. absent: Calf Tenderness, Pedal Edema - Back Exam Back Exam: absent: CVA tenderness (L), CVA tenderness (R) - Neurological Exam Neurological Exam: Alert, Awake, Oriented x3 Assessment and Plan - Assessment and Plan (Free Text) Assessment: 38 y/o M with a PMHx of obstructive uropathy s/p bilateral ureter stent, Schizophrenia and CKD admitted due to worsening in renal function and R hydronephrosis. S/P Cytoscopy with removal of multiple bladder neck calculi and supra-pubic catheter placement. PLAN: >Hydronephrosis/Obstructive uropathy --Stable --S/P Cytoscopy with removal of multiple bladder neck calculi and supra-pubic catheter placement. --Urology on board, Dr Andersen. --Bilateral nephrostomy tube placement, is being considered. --Nephrology on board, Dr León. --Monitor urine output. --Monitor BMP. >Acute on CKD --most probably due to obstructive uropathy. --Creatinine level slowly improving, from 2.8 2 days ago to 2.5-today. --IV LR at 100mL/hr. --Nephrology on board, Dr León. --Monitor urine output. --Monitor BMP. >HTN, chronic - controlled - resumed home meds - monitor BP >Schizophrenia/Bipolar disorder - stable, asymptomatic - continue home meds Case discussed with Dr Ela Keene PGY-2
[2018-10-05 11:58] LABS: FERRITIN 80.9 ng/Ml (17.9-464)
--- NOTE | 2018-10-05 13:13 | CP.PCM.PN ---
Subjective - Date & Time of Evaluation Date of Evaluation: 10/05/18 Time of Evaluation: 13:11 - Subjective Subjective: Nephrology Consultation Note Assessment: Stable Acute Kidney Injury (N17.9) likely due to obs uropathy, bladder neck calculi Hypertensive Chronic Kidney Disease (I12.9) Chronic Kidney Disease (N18.3) Stage 3 Anemia (D64.9), acidosis, constipation schizophrenia Plan No acute need for renal replacement therapy at this time. Hypertension control with meds as ordered. Maintain hemodynamics stable. Avoid hypotension. Patient not on ACEI/ARB due to recent SKIP Monitor Input/Output, daily weights and renal function with basic metabolic panel startd lactulose Check urine analysis, spot protein/creatinine, albumin/creatinine ratio Check HIV/Hep B and Hep C serology Anemia work up with TSAT/Ferritin/Vitamin B12/folate Check for 25-OH vitamin D, iPTH, phosphorus level. Dose meds/antibiotics for reduced GFR. Avoid fleets enema/magnesium based laxatives. Avoid nephrotoxins/NSAIDs/ iodinated contrast (unless needed emergently) Glycemic control Further work up for as per primary team Thanks for allowing me to participate in care of your patient. Will follow patient with you. Please call if any Qs Dr Jerry Delgado Office: [phone] Subjective: Noted events overnight. Patients feels okay. Denies chest pain, palpitation, shortness of breath, leg swelling. All other negative mother reports constipation Physical Examination: General Appearance: Comfortable, in no acute respiratory distress, co-operative . Vitals reviewed and noted as below Head; Atraumatic, normocephalic ENT: no ulcers no thrush. Tongue is midline. Oropharynx: no rash or ulcers. EYES: Pupils are equal, round and reactive to light accommodation. Eye muscles and extraocular movement intact. Sclera is anicteric. Neck; supple no lymphadenopathy, no thyromegaly or bruit Lungs: Normal respiratory rate/effort. Breath sounds bilateral equal and clear Heart: Normal rate. s1s2 normal. No rub or gallop. Extremities: no edema. No varicose veins Neurological: Patient is alert, awake and oriented to person, place and time. No focal deficit. Strength bilateral appropriate and equal Skin: Warm and dry. Normal turgor. No rash. Palpitation: Normal elasticity for age Abdomen: Abdomen is soft. Bowel sounds +. There is no abdominal tenderness, no guarding/rigidity no organomegaly Psych: limited insight and anxious MSK: no joint tenderness or swelling. Digits and nails normal, no deformity : kidney or bladder not palpable. has SP catheter Labs/imaging reviewed. Past medical history, past surgical history, family history, social history, allergy reviewed and noted as below Family hx: no hx of CKD. Rest non-contributory Objective - Vital Signs/Intake and Output Vital Signs (last 24 hours): Temp Pulse Resp BP Pulse Ox 98.6 F 99 H 20 118/82 98 10/05/18 08:43 10/05/18 08:43 10/05/18 08:43 10/05/18 08:43 10/05/18 08:43 Intake and Output: 10/05/18 10/05/18 06:59 18:59 Intake Total 1100 Output Total 850 Balance 250 - Medications Medications: Current Medications Amlodipine Besylate (Norvasc) 10 mg PO DAILY [facility] Last Admin: 10/05/18 09:48 Dose: 10 mg Benztropine Mesylate (Cogentin) 1 mg PO BID [facility] Last Admin: 10/05/18 09:46 Dose: 1 mg Haloperidol Lactate (Haldol) 10 mg PO HS [facility] Last Admin: 10/04/18 21:32 Dose: 10 mg Haloperidol Lactate (Haldol) 5 mg PO DAILY [facility] Last Admin: 10/05/18 09:45 Dose: 5 mg Home Med (Clozapine [Clozapine]) 300 mg PO Q12H [facility] Lactated Ringer's (Lactated Ringer's) 1,000 mls @ 100 mls/hr IV .Q10H [facility] Last Admin: 10/05/18 00:44 Dose: 100 mls/hr Lactated Ringer's (Lactated Ringer's) 1,000 mls @ 100 mls/hr IV .Q10H [facility] Last Admin: 10/05/18 09:08 Dose: 100 mls/hr Imipramine HCl (Tofranil) 25 mg PO BID [facility] Last Admin: 10/05/18 10:40 Dose: 25 mg Metoprolol Tartrate (Lopressor) 50 mg PO DAILY [facility] Last Admin: 10/05/18 09:46 Dose: 50 mg Oxcarbazepine (Trileptal) 150 mg PO BID [facility] Last Admin: 10/05/18 09:49 Dose: 150 mg Ranitidine HCl (Zantac Soln 5ml) 150 mg PO BID [facility] Last Admin: 10/05/18 09:49 Dose: 150 mg Tamsulosin HCl (Flomax) 0.4 mg PO DAILY [facility] Last Admin: 10/05/18 10:40 Dose: 0.4 mg - Labs Labs: 10/04/18 06:35 10/05/18 09:02 PT 12.9 Seconds (9.8-13.1) 10/04/18 06:35 INR 1.1 10/04/18 06:35 APTT 38.6 Seconds (25.6-37.1) H 10/04/18 06:35
[2018-10-05] MEDS: CLOZAPINE 300 MG PO SCH (13:42)
[2018-10-05 17:30] LABS: FOLATE 18.5 ng/mL
--- NOTE | 2018-10-05 17:57 | CT ---
Date of service: 10/04/2018 PROCEDURE: CT Abdomen and Pelvis. HISTORY: Urinary retention, bilateral hydronephrosis COMPARISON: None. TECHNIQUE: Contiguous helical/transaxial sections of the abdomen pelvis performed without oral or intravenous contrast material. Comparison made with prior CT scan the abdomen pelvis dated 11/25/14. Contrast dose: Radiation dose: Total exam DLP = 806.19 mGy-cm. This CT exam was performed using one or more of the following dose reduction techniques: Automated exposure control, adjustment of the mA and/or kV according to patient size, and/or use of iterative reconstruction technique. FINDINGS: LOWER THORAX: Heart size is within range of normal. No significant pericardial effusion. There is a small hiatal hernia with slight wall thickening of the distal esophagus likely due to protrusion of gastric mucosa. Esophagitis not excluded. Clinical correlation recommended. There appears to be some very minimal linear atelectasis and or scarring changes both posterior lower lung meade. Lung meade otherwise clear. No airspace consolidation, effusion or basilar pneumothorax.. LIVER: The liver exhibits normal size measuring just over 18 cm in CC dimension. No obvious hepatic mass collection or calcification. GALLBLADDER AND BILE DUCTS: Gallbladder physiologically distended. No evidence of intraluminal gallbladder calculi. PANCREAS: Unremarkable. No gross lesion or ductal dilatation. SPLEEN: Unremarkable. Adjacent to the anterior inferior margin of the main body of the spleen unchanged. ADRENALS: No adrenal lesions are identified KIDNEYS AND URETERS: Significant bilateral hydronephrosis which has progressed compared the prior exam. There is in situ suprapubic cystostomy tube with collapse of the urinary bladder in part due to unclamped cystostomy tube however cystitis or other urinary bladder wall lesion such as bladder carcinoma must be considered. Clinical correlation recommended. Few bubbles of air within the bladder lumen again likely due to instrumentation changes. VASCULATURE: Unremarkable. No aortic aneurysm. No aortic atherosclerotic calcification or mural plaque present. BOWEL: Evaluation of the bowel is somewhat limited due to the lack of oral contrast material. The stomach is distended with food debris liquid and air. Visualized loops of small bowel exhibit normal contour and caliber. No evidence of acute mechanical small bowel obstruction. There is a very large amount of dry stool throughout the colon consistent with significant fecal retention/constipation. Clinical correlation recommended. APPENDIX: Unremarkable. Normal appendix. PERITONEUM: Unremarkable. No free fluid. No free air. Tiny fat containing umbilical hernia. LYMPH NODES: Unremarkable. No enlarged lymph nodes. BLADDER: As above. REPRODUCTIVE: The prostate gland measures approximately 4.8 cm in transverse dimension. Prostate gland is heterogeneous with scattered calcifications. Findings likely due to BPH however correlation with PSA recommended. BONES: Mild multilevel degenerative spondylosis of the lower thoracic and lumbar spine. OTHER FINDINGS: None. IMPRESSION: Significant bilateral hydronephrosis. There is marked wall thickening of the urinary bladder with in situ suprapubic cystostomy 2. Urinalysis correlation recommended to exclude cystitis however the possibility of invasive wall lesion such is transitional cell carcinoma must be considered. Clinical correlation recommended. Enlarged prostate gland likely due to BPH however correlation with PSA. Findings consistent with significant constipation.
--- NOTE | 2018-10-05 21:11 | CP.PCM.PN ---
Subjective - Date & Time of Evaluation Date of Evaluation: 10/05/18 Time of Evaluation: 21:04 - Subjective Subjective: pt seen today pt draining well. bm's good bun/creat slowly improving. I advise to keep spt for next two weeks and at that time will reassess outlet obstruction by repeat cystoscopy. Once medically stable he can be discharged home on [po antibiotics. Objective - Vital Signs/Intake and Output Vital Signs (last 24 hours): Temp Pulse Resp BP Pulse Ox 98 F 95 H 20 125/74 99 10/05/18 16:11 10/05/18 16:11 10/05/18 16:11 10/05/18 16:11 10/05/18 16:11 - Medications Medications: Current Medications Amlodipine Besylate (Norvasc) 10 mg PO DAILY [facility] Last Admin: 10/05/18 09:48 Dose: 10 mg Benztropine Mesylate (Cogentin) 1 mg PO BID [facility] Last Admin: 10/05/18 16:37 Dose: 1 mg Haloperidol Lactate (Haldol) 10 mg PO HS [facility] Last Admin: 10/04/18 21:32 Dose: 10 mg Haloperidol Lactate (Haldol) 5 mg PO DAILY [facility] Last Admin: 10/05/18 09:45 Dose: 5 mg Home Med (Clozapine [Clozapine]) 300 mg PO Q12H [facility] Last Admin: 10/05/18 13:42 Dose: 300 mg Lactated Ringer's (Lactated Ringer's) 1,000 mls @ 100 mls/hr IV .Q10H [facility] Last Admin: 10/05/18 14:30 Dose: Not Given Lactated Ringer's (Lactated Ringer's) 1,000 mls @ 100 mls/hr IV .Q10H [facility] Last Admin: 10/05/18 09:08 Dose: 100 mls/hr Imipramine HCl (Tofranil) 25 mg PO BID [facility] Last Admin: 10/05/18 17:14 Dose: 25 mg Lactulose (Enulose) 20 gm PO DAILY [facility] Last Admin: 10/05/18 13:42 Dose: Not Given Metoprolol Tartrate (Lopressor) 50 mg PO DAILY [facility] Last Admin: 10/05/18 09:46 Dose: 50 mg Oxcarbazepine (Trileptal) 150 mg PO BID [facility] Last Admin: 10/05/18 16:38 Dose: 150 mg Ranitidine HCl (Zantac Soln 5ml) 150 mg PO BID [facility] Last Admin: 10/05/18 16:38 Dose: 150 mg Tamsulosin HCl (Flomax) 0.4 mg PO DAILY [facility] Last Admin: 10/05/18 10:40 Dose: 0.4 mg - Labs Labs: 10/04/18 06:35 10/05/18 09:02 PT 12.9 Seconds (9.8-13.1) 10/04/18 06:35 INR 1.1 10/04/18 06:35 APTT 38.6 Seconds (25.6-37.1) H 10/04/18 06:35
[2018-10-06] MEDS: CLOZAPINE 300 MG PO SCH (00:36)
[2018-10-06] MEDS: Lactated Ringer's 1,000 ML IV SCH ×2 (00:37→05:28)
[2018-10-06 07:57] VITALS: BP 119/75; PULSE 81; RESP 19; TEMP 97.8; O2SAT 95
[2018-10-06 08:44] LABS: HEPATITIS B SURFACE AG Negative (NEGATIVE)
[2018-10-06 08:49] LABS: HEPATITIS B CORE AB NEGATIVE (NEGATIVE)
[2018-10-06 09:01] LABS: HEPATITIS C ANTIBODY NEGATIVE (NEGATIVE)
[2018-10-06] MEDS: raNITIdine HCl 150 mg/10 ml Soln Cup PO SCH (09:29)
[2018-10-06] MEDS: Haloperidol Lactate 2 mg/ml Liquid PO SCH (09:30)
[2018-10-06 09:39] LABS: CALCIUM 9.6 mg/dL (8.4-10.2)
[2018-10-06 09:53] LABS: HIV 1&2 ANTIBODY NEGATIVE (NEGATIVE)
--- NOTE | 2018-10-06 11:36 | CP.PCM.PN ---
Subjective - Date & Time of Evaluation Date of Evaluation: 10/06/18 Time of Evaluation: 11:35 - Subjective Subjective: Nephrology Consultation Note Assessment: Stable Acute Kidney Injury (N17.9) likely due to obs uropathy, bladder neck calculi Hypertensive Chronic Kidney Disease (I12.9) Chronic Kidney Disease (N18.3) Stage 3 Anemia (D64.9), acidosis, constipation schizophrenia Plan No acute need for renal replacement therapy at this time. Hypertension control with meds as ordered. Maintain hemodynamics stable. Avoid hypotension. Patient not on ACEI/ARB due to recent SKIP Monitor Input/Output, daily weights and renal function with basic metabolic panel startd lactulose consdier Auryxia 210 mg TID as outpt for iron def anemia Check urine analysis, spot protein/creatinine, albumin/creatinine ratio Check HIV/Hep B and Hep C serology Anemia work up with TSAT/Ferritin/Vitamin B12/folate Check for 25-OH vitamin D, iPTH, phosphorus level. Dose meds/antibiotics for reduced GFR. Avoid fleets enema/magnesium based laxatives. Avoid nephrotoxins/NSAIDs/ iodinated contrast (unless needed emergently) Glycemic control Further work up for as per primary team Thanks for allowing me to participate in care of your patient. Will follow patient with you. Please call if any Qs Dr Jerry Delgado Office: [phone] Subjective: Noted events overnight. Patients feels okay. Denies chest pain, palpitation, shortness of breath, leg swelling. All other negative mother reports constipation Physical Examination: General Appearance: Comfortable, in no acute respiratory distress, co-operative . Vitals reviewed and noted as below Head; Atraumatic, normocephalic ENT: no ulcers no thrush. Tongue is midline. Oropharynx: no rash or ulcers. EYES: Pupils are equal, round and reactive to light accommodation. Eye muscles and extraocular movement intact. Sclera is anicteric. Neck; supple no lymphadenopathy, no thyromegaly or bruit Lungs: Normal respiratory rate/effort. Breath sounds bilateral equal and clear Heart: Normal rate. s1s2 normal. No rub or gallop. Extremities: no edema. No varicose veins Neurological: Patient is alert, awake and oriented to person, place and time. No focal deficit. Strength bilateral appropriate and equal Skin: Warm and dry. Normal turgor. No rash. Palpitation: Normal elasticity for age Abdomen: Abdomen is soft. Bowel sounds +. There is no abdominal tenderness, no guarding/rigidity no organomegaly Psych: limited insight and anxious MSK: no joint tenderness or swelling. Digits and nails normal, no deformity : kidney or bladder not palpable. has SP catheter Labs/imaging reviewed. Past medical history, past surgical history, family history, social history, allergy reviewed and noted as below Family hx: no hx of CKD. Rest non-contributory Objective - Vital Signs/Intake and Output Vital Signs (last 24 hours): Temp Pulse Resp BP Pulse Ox 97.8 F 81 19 119/75 95 10/06/18 07:56 10/06/18 09:38 10/06/18 07:56 10/06/18 09:38 10/06/18 07:56 Intake and Output: 10/06/18 10/06/18 06:59 18:59 Intake Total 1300 Output Total 3050 Balance -1750 - Medications Medications: Current Medications Amlodipine Besylate (Norvasc) 10 mg PO DAILY [facility] Last Admin: 10/06/18 09:30 Dose: 10 mg Benztropine Mesylate (Cogentin) 1 mg PO BID [facility] Last Admin: 10/06/18 09:30 Dose: 1 mg Haloperidol Lactate (Haldol) 10 mg PO HS [facility] Last Admin: 10/05/18 21:29 Dose: 10 mg Haloperidol Lactate (Haldol) 5 mg PO DAILY [facility] Last Admin: 10/06/18 09:30 Dose: 5 mg Home Med (Clozapine [Clozapine]) 300 mg PO Q12H [facility] Last Admin: 10/06/18 00:36 Dose: 300 mg Imipramine HCl (Tofranil) 25 mg PO BID [facility] Last Admin: 10/06/18 09:29 Dose: 25 mg Lactulose (Enulose) 20 gm PO DAILY [facility] Last Admin: 10/06/18 09:29 Dose: 20 gm Metoprolol Tartrate (Lopressor) 50 mg PO DAILY [facility] Last Admin: 10/06/18 09:38 Dose: 50 mg Oxcarbazepine (Trileptal) 150 mg PO BID [facility] Last Admin: 10/06/18 09:30 Dose: 150 mg Ranitidine HCl (Zantac Soln 5ml) 150 mg PO BID [facility] Last Admin: 10/06/18 09:29 Dose: 150 mg Tamsulosin HCl (Flomax) 0.4 mg PO DAILY [facility] Last Admin: 10/06/18 09:30 Dose: 0.4 mg - Labs Labs: 10/04/18 06:35 10/06/18 08:40 PT 12.9 Seconds (9.8-13.1) 10/04/18 06:35 INR 1.1 10/04/18 06:35 APTT 38.6 Seconds (25.6-37.1) H 10/04/18 06:35
--- NOTE | 2018-10-06 11:55 | CP.PCM.DIS ---
Provider - Provider Date of Admission: 10/03/18 20:48 Attending physician: Sahil Hamm Consults: 10/03/18 20:38 Nephrology Consult Stat Comment: Consulting Provider: Toney León Consulting Physician: Toney León Reason for Consult: worsening renal function 10/03/18 20:40 Urology Consult Stat Comment: Consulting Provider: Chloe Andersen Consulting Physician: Chloe Andersen Reason for Consult: hydronephrosis Time Spent in preparation of Discharge (in minutes): 35 Diagnosis - Discharge Diagnosis (1) Acute kidney injury Status: Acute (2) Obstructive uropathy Status: Acute (3) CKD (chronic kidney disease) Status: Chronic (4) Hypertension Status: Chronic (5) Schizophrenia Status: Chronic Hospital Course - Lab Results Lab Results: Micro Results 10/03/18 20:50 Urine,Clean Catch Urine Culture - Final No Growth (<1,000 CFU/ML) Most Recent Lab Values WBC 9.6 K/uL (4.8-10.8) 10/04/18 06:35 RBC 3.56 Mil/uL (4.40-5.90) L 10/04/18 06:35 Hgb 10.8 g/dL (12.0-18.0) L 10/04/18 06:35 Hct 31.5 % (35.0-51.0) L 10/04/18 06:35 MCV 88.5 fl (80.0-94.0) 10/04/18 06:35 MCH 30.4 pg (27.0-31.0) 10/04/18 06:35 MCHC 34.3 g/dL (33.0-37.0) 10/04/18 06:35 RDW 13.7 % (11.5-14.5) 10/04/18 06:35 Plt Count 219 K/uL (130-400) 10/04/18 06:35 MPV 8.1 fl (7.2-11.7) 10/04/18 06:35 Neut % (Auto) 61.0 % (50.0-75.0) 10/04/18 06:35 Lymph % (Auto) 24.7 % (20.0-40.0) 10/04/18 06:35 Kaufman % (Auto) 9.7 % (0.0-10.0) 10/04/18 06:35 Eos % (Auto) 3.9 % (0.0-4.0) 10/04/18 06:35 Baso % (Auto) 0.7 % (0.0-2.0) 10/04/18 06:35 Neut # (Auto) 5.8 K/uL (1.8-7.0) 10/04/18 06:35 Lymph # (Auto) 2.4 K/uL (1.0-4.3) 10/04/18 06:35 Kaufman # (Auto) 0.9 K/uL (0.0-0.8) H 10/04/18 06:35 Eos # (Auto) 0.4 K/uL (0.0-0.7) 10/04/18 06:35 Baso # (Auto) 0.1 K/uL (0.0-0.2) 10/04/18 06:35 PT 12.9 Seconds (9.8-13.1) 10/04/18 06:35 INR 1.1 10/04/18 06:35 APTT 38.6 Seconds (25.6-37.1) H 10/04/18 06:35 Sodium 143 mmol/l (132-148) 10/06/18 08:40 Potassium 4.0 MMOL/L (3.6-5.0) 10/06/18 08:40 Chloride 111 mmol/L (98-107) H 10/06/18 08:40 Carbon Dioxide 25 mmol/L (22-30) 10/06/18 08:40 Anion Gap 11 (10-20) 10/06/18 08:40 BUN 23 mg/dl (9-20) H 10/06/18 08:40 Creatinine 2.4 mg/dl (0.8-1.5) H 10/06/18 08:40 Est GFR ( Amer) 37 10/06/18 08:40 Est GFR (Non-Af Amer) 30 10/06/18 08:40 Random Glucose 100 mg/dL (75-110) 10/06/18 08:40 Calcium 9.6 mg/dL (8.4-10.2) 10/06/18 08:40 Phosphorus 3.2 mg/dl (2.5-4.5) 10/06/18 05:30 Magnesium 1.7 MG/DL (1.6-2.3) 10/06/18 05:30 Iron 39 ug/dL (49-181) L 10/05/18 10:29 TIBC 247 ug/dL (250-450) L 10/05/18 10:29 % Saturation 16 % (20-55) L 10/05/18 10:29 Ferritin 80.9 ng/Ml (17.9-464) 10/05/18 10:29 Total Bilirubin 0.2 mg/dl (0.2-1.3) 10/04/18 06:35 AST 16 U/L (17-59) L D 10/04/18 06:35 ALT 22 U/L (21-72) 10/04/18 06:35 Alkaline Phosphatase 76 U/L (38-126) 10/04/18 06:35 Total Protein 7.2 G/DL (6.3-8.2) 10/04/18 06:35 Albumin 4.1 g/dL (3.5-5.0) 10/04/18 06:35 Globulin 3.0 gm/dL (2.2-3.9) 10/04/18 06:35 Albumin/Globulin Ratio 1.4 (1.0-2.1) 10/04/18 06:35 Vitamin B12 745 pg/mL (239-931) 10/05/18 10:29 Folate 18.5 ng/mL 10/05/18 10:29 TSH 3rd Generation 0.89 mIU/ML (0.46-4.68) 10/06/18 05:30 Urine Color Straw (YELLOW) 10/03/18 20:50 Urine Clarity Clear (Clear) 10/03/18 20:50 Urine pH 6.0 (5.0-8.0) 10/03/18 20:50 Ur Specific [place] 1.009 (1.003-1.030) 10/03/18 20:50 Urine Protein Negative mg/dL (NEGATIVE) 10/03/18 20:50 Urine Glucose (UA) Neg mg/dL (NEGATIVE) 10/03/18 20:50 Urine Ketones Negative mg/dL (NEGATIVE) 10/03/18 20:50 Urine Blood Negative (NEGATIVE) 10/03/18 20:50 Urine Nitrate Negative (NEGATIVE) 10/03/18 20:50 Urine Bilirubin Negative (NEGATIVE) 10/03/18 20:50 Urine Urobilinogen 0.2-1.0 mg/dL (0.2-1.0) 10/03/18 20:50 Ur Leukocyte Esterase Neg Lopez/uL (Negative) 10/03/18 20:50 Urine RBC (Auto) < 1 /hpf (0-3) 10/03/18 20:50 Urine Microscopic WBC 3 /hpf (0-5) 10/03/18 20:50 Urine Bacteria Rare (<OCC) 10/03/18 20:50 Ur Random Creatinine 39 mg/dL (20-320) 10/05/18 11:20 U Random Total Protein 6179 mg/g creat (22-128) H 10/05/18 11:20 Urine Total Volume 115.6 mg/dL 10/05/18 11:20 Microalb/Creat Ratio 2965 (<30) H 10/05/18 11:20 Hep Bs Antigen Negative (NEGATIVE) 10/05/18 10:29 Hep Bs Antibody Negative (NEGATIVE) 10/05/18 10:29 Hep B Core IgM Ab Negative (NEGATIVE) 10/05/18 10:29 Hepatitis C Antibody Negative (NEGATIVE) 10/05/18 10:29 HIV 1&2 Antibody Screen Negative (NEGATIVE) 10/05/18 10:29 Blood Type O POSITIVE 10/03/18 22:24 Blood Type Confirm O POSITIVE 10/04/18 10:28 Antibody Screen Negative 10/03/18 22:24 BBK History Checked No verified bt 10/03/18 22:24 - Hospital Course Hospital Course: 38 y/o M, with Hx of bilateral hydronephrosis, schizophrenia, bipolar disorder and HTN presents to ED for evaluation of worsening hydronephrosis and renal function. Dr. León and Dr. Andersen consulted. US don earlier on the day of admission showed "severe left greater than right hydronephrosis in comparisons to previous exam. Suggestive bladder obstruction", no renal calculus. Patient underwent Cytoscopy with removal of multiple bladder neck calculi and supra- pubic catheter placement. CBC, CMP, urine analysis, spot protein/creatinine, albumin/creatinine ratio, HIV/Hep B and Hep C serology,TSAT/Ferritin/Vitamin B12/folate/25-OH vitamin D, iPTH, phosphorus level ordered and patient resumed on home medications. Patient's renal function improving and BUN/Cr trending down. Urologist recommended repeat cystoscopy after 2 weeks and cleared to discharge home on PO antibiotics. Patient medically stable, VSS, improvement in renal function. Patient to be discharge home on PO bactrim and to F/U with PMD, shot core drill operator helper and urologist. Patient and family instructed about suprapubic catheter care. Discharge Medications -Amlodipine 10 mg PO daily -Benztropine 2 mg PO BID -Clozapine 300 mg PO Q12 -Haloperidol 10 mg PO BID -Imipramine 25 mg PO BID -Lopressor 50 mg PO daily -Oxcarbazepine 150 mg PO BID -Colace 100 mg PO BID -Bactrim 1 tab PO BID -Tamsulosin 0.4 mg PO Daily Discharge Exam - Head Exam Head Exam: ATRAUMATIC, NORMAL INSPECTION - Eye Exam Eye Exam: EOMI, Normal appearance Pupil Exam: NORMAL ACCOMODATION - ENT Exam ENT Exam: Mucous Membranes Moist - Neck Exam Neck exam: Full Rom - Respiratory Exam Respiratory Exam: Clear to PA & Lateral. absent: Rales, Rhonchi, Wheezes, Respiratory Distress - Cardiovascular Exam Cardiovascular Exam: REGULAR RHYTHM, +S1, +S2 - GI/Abdominal Exam GI & Abdominal Exam: Normal Bowel Sounds, Soft, Tenderness. absent: Guarding - Back Exam Back exam: absent: CVA tenderness (L), CVA tenderness (R) - Neurological Exam Neurological exam: Alert, Oriented x3 - Psychiatric Exam Psychiatric exam: Flat Affect, Normal Mood - Skin Skin Exam: Dry, Intact, Normal Color, Warm Discharge Plan - Discharge Medications Prescriptions: Docusate [Colace] 100 mg PO BID #60 cap Sulfamethoxazole/Trimethoprim [Bactrim Ds Tablet] 1 tab PO Q12 #14 tablet Tamsulosin [Flomax] 0.4 mg PO DAILY #30 cap - Follow Up Plan Condition: STABLE Disposition: HOME/ ROUTINE Instructions: How to Care for Your Barth Catheter, Male, Urinary Obstruction, Urinary Obstruction (DC), Barth Catheter, Male, Urinary Retention, Urinary Retention (DC) Referrals: Chloe Andersen MD [Medical Doctor] -
== END 2018-10-06 13:00 | disposition home or self-care (01) | DRG 683 ==
LOC: H.ER 16:21 → H.ERHOLD 20:48 → H.MEDSURG1 10-04 15:40
PROVIDERS: ADMIT Internal Medicine; ATTEND Internal Medicine
PROC: BT1BZZZ Fluoroscopy of Bladder and Urethra (ICD-10-PCS; 2018-10-04)
PROC: 0T9B80Z Drainage of Bladder with Drainage Device, Via Natural or Artificial Opening Endoscopic (ICD-10-PCS; 2018-10-04)
PROC: 0TCC8ZZ Extirpation of Matter from Bladder Neck, Via Natural or Artificial Opening Endoscopic (ICD-10-PCS; principal; 2018-10-04 11:00)
DX: N17.9 Acute kidney failure, unspecified (principal); E87.2 Acidosis; N13.8 Other obstructive and reflux uropathy; N13.30 Unspecified hydronephrosis; F20.9 Schizophrenia, unspecified; E86.0 Dehydration; I12.9 Hypertensive chronic kidney disease with stage 1 through stage 4 chronic kidney disease, or unspecified chronic kidney disease; F31.9 Bipolar disorder, unspecified; Z95.5 Presence of coronary angioplasty implant and graft; R31.9 Hematuria, unspecified; N21.0 Calculus in bladder; N18.3 Chronic kidney disease, stage 3 (moderate); K59.00 Constipation, unspecified; D50.9 Iron deficiency anemia, unspecified; N40.1 Benign prostatic hyperplasia with lower urinary tract symptoms; R33.8 Other retention of urine; F17.200 Nicotine dependence, unspecified, uncomplicated

== ENCOUNTER 2018-10-28 07:59 | Day surgery (SDC) | payer MEDICARE ==
[2018-10-23 09:36] VITALS: BMI 27.3
[2018-10-28 09:42] LABS: BASO # 0.1 K/uL (0.0-0.2); EOS # 0.4 K/uL (0.0-0.7); EOS % 4.9 % (0.0-4.0); HEMOGLOBIN 12.3 g/dL (12.0-18.0); LYMPH # 1.6 K/uL (1.0-4.3); LYMPH % 17.9 % (20.0-40.0); MEAN CELL VOLUME 91.9 fl (80.0-94.0); MEAN CORPUSCULAR HEMOGLOBIN 31.7 pg (27.0-31.0); MEAN CORPUSCULAR HGB CONC 34.5 g/dL (33.0-37.0); MEAN PLATELET VOLUME 8.4 fl (7.2-11.7); MONO # 0.8 K/uL (0.0-0.8); NEUT % 67.2 % (50.0-75.0); NRBC % 0.1 % (0.0-0.0); RBC 3.88 Mil/uL (4.40-5.90); RED CELL DISTRIBUTION WIDTH 14.6 % (11.5-14.5); WHITE BLOOD COUNT 8.9 K/uL (4.8-10.8)
[2018-10-28 09:47] VITALS: RESP 18
[2018-10-28] MEDS ORDERED: cefTRIAXone (Rocephin) 1 gm Inj ONE (10:42)
[2018-10-28] MEDS ORDERED: Propofol 10 mg/ml Inj (20 ML) ONE (11:03)
[2018-10-28] MEDS ORDERED: Midazolam 2 MG/2 ML VIAL ONE (11:03)
[2018-10-28] MEDS ORDERED: Lactated Ringer's 1,000 ML IV ONE (11:24)
[2018-10-28] MEDS ORDERED: cefTRIAXone (Rocephin) 1 gm Inj IM ONE (11:35)
[2018-10-28] MEDS ORDERED: HYDROmorphone 0.5 mg/0.5 ml ISec IVP PRN (12:07)
[2018-10-28] MEDS ORDERED: Dexamethasone 4 mg/1 ml IVP PRN (12:07)
[2018-10-28] MEDS ORDERED: Lactated Ringer's 1,000 ML IV SCH (12:15)
[2018-10-28 12:35] VITALS: O2SAT 100
[2018-10-28 14:26] VITALS: BP 136/74; PULSE 88; TEMP 98.6
--- NOTE | 2018-10-28 22:16 | OP ---
PROCEDURE DATE: 10/28/2018 PREOPERATIVE DIAGNOSIS: Urinary retention with prostatic urethral calculi. POSTOPERATIVE DIAGNOSIS: Urinary retention with prostatic urethral calculi. PROCEDURE PERFORMED: Cystoscopy with prostatic urethral calculi manipulation and drains into the bladder and removal of suprapubic tube. SURGEON: Chloe Andersen MD ESTIMATED BLOOD LOSS: Zero. DESCRIPTION OF PROCEDURE: The patient placed in the operating table in dorsal lithotomy position and given general anesthesia. The area of the groin was draped and prepped. Under video guidance, per urethra to the level of the prostatic urethra, there was noted to be small cellules at the level of the prostatic urethra. I opened into them and enucleated some stones from this area to free them to be able to be passed. On the right side particularly, there was an interesting phenomenon of what appeared to be purulent-like material coming from the lateral wall of the prostate. This was not the urethral orifice, this was just a, perhaps, accumulation of debris in that area. I irrigated it multiple times and attempted to clean it completely. Following this, I gained access into the bladder at this time and the bladder is completely and as heavily trabeculated as possible with multiple cellules throughout the bladder. I took multiple documenting photos of this area. It does not appear to be tumor in nature, but it is heavily, heavily bullous edema throughout the entire bladder wall. Once I cleaned enough for the calculi, I added a prostatic urethra and appeared to be coming a little clear the effluent from that opening. I then removed the cystoscope and removed the suprapubic tube and the patient then was taken from the operating room in good condition. Chloe Andersen MD
== END 2018-10-28 14:30 | disposition home or self-care (01) ==
LOC: H.OPSURG 07:59
PROVIDERS: ATTEND Urology
DX: N21.1 Calculus in urethra (principal); R33.8 Other retention of urine; I12.9 Hypertensive chronic kidney disease with stage 1 through stage 4 chronic kidney disease, or unspecified chronic kidney disease; N18.9 Chronic kidney disease, unspecified
CPT/HCPCS: 36415; 52330; 80048; 85025; J0696; J2001; J2250; J2405; J2704; J3010; J7120

== ENCOUNTER 2018-12-17 18:32 | Inpatient (IN) | payer MEDICARE ==
[2018-12-17 18:32] VITALS: BMI 27.3
[~2018-12-17 18:32] MED LIST: Bisacodyl 5mg EC Tab PO PRN
[2018-12-17] MEDS ORDERED: Sodium Chloride 0.9% 1,000 ML IV STA (19:03)
[2018-12-17 19:40] LABS: BASO % 0.3 % (0.0-2.0); EOS # 0.1 K/uL (0.0-0.7); EOS % 1.1 % (0.0-4.0); HEMOGLOBIN 10.5 g/dL (12.0-18.0); LYMPH # 1.9 K/uL (1.0-4.3); LYMPH % 16.1 % (20.0-40.0); MEAN CELL VOLUME 84.8 fl (80.0-94.0); MEAN CORPUSCULAR HEMOGLOBIN 28.2 pg (27.0-31.0); MEAN CORPUSCULAR HGB CONC 33.2 g/dL (33.0-37.0); MEAN PLATELET VOLUME 7.8 fl (7.2-11.7); MONO # 1.1 K/uL (0.0-0.8); MONO % 9.4 % (0.0-10.0); NEUT # 8.8 K/uL (1.8-7.0); NEUT % 73.1 % (50.0-75.0); RBC 3.73 Mil/uL (4.40-5.90); RED CELL DISTRIBUTION WIDTH 16.4 % (11.5-14.5)
[2018-12-17 19:49] LABS: ALB/GLOB RATIO 1.1 (1.0-2.1); ALBUMIN 4.2 g/dL (3.5-5.0); CALCIUM 10.4 mg/dL (8.4-10.2)
--- NOTE | 2018-12-17 20:01 | ED PDOC ---
HPI: Headache Time Seen by Provider: 12/17/18 18:50 Chief Complaint (Nursing): Altered Mental Status Chief Complaint (Provider): constipation History Per: Patient, Family (mother) History/Exam Limitations: no limitations Onset/Duration Of Symptoms: Sudden Onset Current Symptoms Are (Timing): Better Additional Complaint(s): 38 year old male with past history of schizophrenia and kidney stones, arrives to the emergency department for an evaluation of headache X4 d and constipation. Patient took miraLAX then vomited and became pale. Mother reports that she witnessed the patient become pale and vomit; she is not sure if passed out but doesnt think so (if he did, she said, it would have been for one second and then immediately responded). she is concerned about pt being dehydrated. No further complaints offered. pt denies chest pain, shortness of breath. PCP: Dr. Harry Mortensen Past Medical History Reviewed: Historical Data, Nursing Documentation, Vital Signs Vital Signs: Last Vital Signs Temp 98.4 F 12/17/18 18:36 Pulse 115 H 12/17/18 18:36 Resp 20 12/17/18 18:36 BP 153/99 H 12/17/18 18:36 Pulse Ox 97 12/17/18 18:36 - Medical History PMH: Anxiety, Depression, HTN, Paranoia, Schizophrenia Denies: Chronic Kidney Disease - Surgical History Surgical History: Other surgeries: lithotripsy - Family History Family History: States: Unknown Family Hx - Social History Current smoker - smoking cessation education provided: No Alcohol: None Drugs: Denies - Home Medications Home Medications: Ambulatory Orders Medication Instructions Recorded Benztropine Mesylate 2 mg PO BID 11/25/14 Clozapine 300 mg PO Q12H 11/25/14 Haloperidol [Haldol] 10 mg PO BID 11/25/14 Oxcarbazepine 150 mg PO BID 11/25/14 amLODIPine [Norvasc] 10 mg PO DAILY 11/25/14 Imipramine [Tofranil] 25 mg PO BID 10/03/18 Metoprolol Tartrate [Lopressor] 50 mg PO DAILY 10/03/18 Docusate [Colace] 100 mg PO BID #60 cap 10/06/18 Tamsulosin [Flomax] 0.4 mg PO DAILY #30 cap 10/06/18 - Allergies Allergies/Adverse Reactions: Allergies Allergy/AdvReac Type Severity Reaction Status Date / Time No Known Allergies Allergy Verified 12/17/18 18:36 Review of Systems ROS Statement: Except As Marked, All Systems Reviewed And Found Negative Constitutional: Positive for: Weakness Gastrointestinal: Positive for: Vomiting, Constipation Neurological: Positive for: Headache, Other (LOC) Physical Exam - Reviewed Nursing Documentation Reviewed: Yes Vital Signs Reviewed: Yes - Physical Exam Appears: Positive for: No Acute Distress Head Exam: Positive for: ATRAUMATIC, NORMAL INSPECTION, NORMOCEPHALIC Skin: Positive for: Warm, Dry, Pallor. Negative for: Normal Color Eye Exam: Positive for: Normal appearance, EOMI, PERRL ENT: Positive for: Normal ENT Inspection Neck: Positive for: Normal Cardiovascular/Chest: Positive for: Regular Rate, Rhythm Respiratory: Positive for: Normal Breath Sounds. Negative for: Respiratory Distress Gastrointestinal/Abdominal: Positive for: Normal Exam, Soft. Negative for: Tenderness Extremity: Positive for: Normal ROM Neurologic/Psych: Positive for: Alert, contract writer II-XII (grossly intact), Oriented (x3), Other (slow to respond, unsure if at baseline from schizophrenia). Negative for: Motor/Sensory Deficits, Aphasia - Laboratory Results Result Diagrams: 12/17/18 19:20 12/17/18 19:20 Lab Results: Cr is at baseline Total Bilirubin 0.2 mg/dl (0.2-1.3) 12/17/18 19:20 AST 24 U/L (17-59) 12/17/18 19:20 ALT 21 U/L (21-72) 12/17/18 19:20 Alkaline Phosphatase 112 U/L (38-126) 12/17/18 19:20 Total Protein 7.9 G/DL (6.3-8.2) 12/17/18 19:20 Albumin 4.2 g/dL (3.5-5.0) 12/17/18 19:20 Globulin 3.7 gm/dL (2.2-3.9) 12/17/18 19:20 Albumin/Globulin Ratio 1.1 (1.0-2.1) 12/17/18 19:20 - ECG O2 Sat by Pulse Oximetry: 97 (RA) Pulse Ox Interpretation: Normal - Critical Care Total Time (In Min): 30 Documented Critical Care: Time excludes all time spent performint seperately billable procedures Medical Decision Making Medical Decision Making: Time: 1899 Initial Plan: headache, constipation rule out intracranial bleed or stroke, rule out abdominal infection, elexctrolyte abnormality * CT ABD/pelvis * CT head * Labs with UA * IV fluids * Tylenol 650mg PO Time: 2099 --CT head FINDINGS: BRAIN No acute intraparenchymal hemorrhage. No mass lesion. Zones of decreased attenuation are seen in the right cerebellum, anterior left cerebellum, and suzi of the brainstem. The cerebellar edema causes right lateral effacement and slight shift to the left of the aqueduct of Sylvius resulting in obstructive hydrocephalus. No cerebral midline shift or extra-axial collections. Some cerebellar tonsillar inferior herniation into the foramen magnum cannot BE excluded. VENTRICLES: Mild obstructive hydrocephalus. ORBITS: The orbits are unremarkable. SINUSES AND MASTOIDS: The paranasal sinuses and mastoid air cells are clear. BONES: No fracture. SOFT TISSUES: Unremarkable. IMPRESSION: 1. Zones of decreased attenuation in the right cerebellum; which is the largest zone; and within the anterior left cerebellum and suzi. Differential includes large mass versus subacute is likely chemic infarctions. 2. Brainstem and cerebellar edema with compression and effacement of the aqueduct of Sylvius and slight shift to the left. This creates obstructive hydrocephalus. 3. Inferior cerebellar tonsillar herniation into the foramen magnum cannot be excluded. 4. Further evaluationis recommended with MRI brain with/without contrast Time: 2100 --CT ABD/pelvis FINDINGS: LUNG BASES: Trace posterior bibasilar dependent atelectasis is noted. No pleural effusions are seen. LIVER: There is hepatomegaly noted. The liver measured an estimated 17.9 cm in the midclavicular line. GALLBLADDER AND BILE DUCTS: The gallbladder appears within normal limits. No radioopaque gallstones are seen. No biliary ductal dilatation is evident. PANCREAS: Unremarkable. SPLEEN: Unremarkable. ADRENAL GLANDS: Unremarkable. KIDNEYS, URETERS, AND BLADDER: Bilateral perinephric stranding is noted which could indicate pyelonephritis. Severe bilateral hydronephrosis and hydroureter are identified. No obstructive etiology is identified; and therefore, the possibility of marked vesicoureteral reflux should be considered. No urinary calculi are seen. The urinary bladder is somewhat unusual in configuration possibly compatible with neurogenic bladder. STOMACH AND BOWEL: A small hiatal hernia is noted. Unremarkable appearance of the stomach. No evidence of bowel obstruction. No evidence suggesting enteritis or colitis. Relatively abundant fecal material is noted within the colon suggesting constipation. A prominent fecal bolus is also seen in the rectal ampulla suggestive of some fecal impaction. APPENDIX: No evidence of acute appendicitis on CT examination. PERITONEUM: No free fluid. No free air. LYMPH NODES: No lymphadenopathy is evident. REPRODUCTIVE: Unremarkable as visualized. VASCULATURE: No evidence of abdominal aortic aneurysm. Minor atherosclerotic vascular plaquing is present. BONES: No aggressive appearing osseous lesion. No acute osseous pathology evident. IMPRESSION: 1. Unusual configuration of the urinary bladder may be compatible with a neurogenic bladder. 2. Severe bilateral hydronephrosis/hydroureter. No obstructive etiology detected; this may represent severe vesicoureteral reflux. 3. Bilateral perinephric stranding is present. Sometimes this finding can indicate pyelonephritis. 4. Minor atherosclerotic vascular plaquing. 5. Evidence of constipation and some fecal impaction. 6. Hepatomegaly. 7. Small hiatal hernia. 2112 discussed results with neurosurgery acid correction hand, Dr Cardoza, who recommends 20 decadron, some lasix and head above bed as well as MRI head tonight or tomorrow. he states pt can be admitted to the ICU here, and does not need transfer to another facility as we have capability to deal with this. states this mass has poor prognosis. ordered those medications pts pcp is Dr Mortensen, spoke with Dr tolbert hospitalist who accepted the patient to ICU. Time: 2139 --Patient will be admitted to hospital. Patient and his mother made aware of plan and are agreeable. pt appears calm, in no distress, awake and alert Scribe Attestation: Documented by Anne-Marie Espinoza, acting as a scribe for Michelle Lux MD. Provider Scribe Attestation: All medical record entries made by the Scribe were at my direction and personally dictated by me. I have reviewed the chart and agree that the record accurately reflects my personal performance of the history, physical exam, medical decision making, and the department course for this patient. I have also personally directed, reviewed, and agree with the discharge instructions and disposition. Disposition - Clinical Impression Clinical Impression: Altered mental status, CKD (chronic kidney disease), Schizophrenia, Brain mass - Patient ED Disposition Is Patient to be Admitted: Yes Counseled Patient/Family Regarding: Diagnosis - Disposition Disposition Time: 21:15 Condition: SERIOUS
[2018-12-17 20:48] LABS: SQUAMOUS EPITHIAL < 1 /hpf (0-5); URINE BACTERIA RARE (<OCC); URINE BILIRUBIN NEGATIVE (NEGATIVE); URINE BLOOD NEGATIVE (NEGATIVE); URINE CLARITY SLIGHTY-CLOUDY (Clear); URINE COLOR YELLOW (YELLOW); URINE GLUCOSE (UA) NEG (NEGATIVE); URINE LEUKOCYTE ESTERASE MOD Leu/uL (Negative); URINE PROTEIN NEGATIVE (NEGATIVE); URINE UROBILINOGEN 0.2-1.0 mg/dL (0.2-1.0)
[2018-12-17] MEDS ORDERED: Dexamethasone 20 MG in Sodium Chloride 0.9% 50 ML IV ONE (21:18)
[2018-12-17 21:48] LABS: INR 1.1
[2018-12-17] MEDS ORDERED: cefTRIAXone (Rocephin) 1 gm Inj ONE (21:50)
[2018-12-17 21:51] LABS: PARTIAL THROMBOPLASTIN TIME 39.2 Seconds (25.6-37.1)
[2018-12-17] MEDS ORDERED: Dexamethasone 4 MG in Sodium Chloride 0.9% 50 ML IVPB SCH (22:00)
--- NOTE | 2018-12-17 22:38 | CP.PCM.HP ---
History of Present Illness - History of Present Illness History of Present Illness: CC: intracranial mass with edema and mass effect HPI: This is a 38 y/o male with with anxiety, depression, schizophrenia, HTN and CKD who came in with LOPEZ/N/V, and was found to have an IC mass. History is largely from mother. She states that patient has 'not been himself' and 'not walking right' for the past week and has also been complaining of intermittent headaches for the past 3-4 days. LOPEZ seemed to be responding to Tylenol at home. Patient has also been constipated, and the mother gave him Miralax per his doctor's instructions today; he immediately vomited and briefly passed out (?) and the family called EMS. Patient states he feels better now, but otherwise provides little other history. PCP: Dr. Harry Mathur ROS: 14 systems reviewed, negative other than HPI MHx: Anxiety, Depression, HTN, Schizophrenia, CKD -- ?baseline Cr in 2s SHx: Recent admission for obstructive uropathy with suprapubic catheter placement and removal of stones; b/l ureteral stents in 2014 Allergy: NKDA Medications: Per med rec Family Hx: M side- HTN, ?malignancy Social Hx: Lives with family, no toboacco, no EtOH, no illicit drugs Surrogate Decision Maker: Mother, contact info on chart Present on Admission - Present on Admission Any Indicators Present on Admission: No Past Patient History - Infectious Disease Hx of Infectious Diseases: None - Past Medical History & Family History Past Medical History?: Yes - Past Social History Alcohol: None Drugs: Denies - CARDIAC Hx Hypertension: Yes - PULMONARY Hx Respiratory Disorders: No - NEUROLOGICAL Hx Neurological Disorder: No - HEENT Hx HEENT Problems: Yes Other/Comment: Reading glasses - RENAL Hx Chronic Kidney Disease: No - ENDOCRINE/METABOLIC Hx Endocrine Disorders: No Hx Diabetes Mellitus Type 2: No (PATIENT DENIES) Other/Comment: ?borderline DM - INTEGUMENTARY Hx Dermatological Problems: Yes Other/Comment: dry skin. chicken pox at 5 yrs old - MUSCULOSKELETAL/RHEUMATOLOGICAL Hx Musculoskeletal Disorders: No Hx Falls: No - GASTROINTESTINAL Hx Gastrointestinal Disorders: No - GENITOURINARY/GYNECOLOGICAL Hx Genitourinary Disorders: Yes Hx Bladder Stone: Yes Other/Comment: BILATERAL HYDRONEPHROSIS - PSYCHIATRIC Hx Anxiety: Yes Hx Depression: Yes Hx Paranoia: Yes Hx Schizophrenia: Yes - ANESTHESIA Hx Anesthesia: Yes Hx Anesthesia Reactions: No Hx Malignant Hyperthermia: No Meds Allergies/Adverse Reactions: Allergies Allergy/AdvReac Type Severity Reaction Status Date / Time No Known Allergies Allergy Verified 12/17/18 18:36 Physical Exam - Constitutional Appears: No Acute Distress - Head Exam Head Exam: ATRAUMATIC, NORMOCEPHALIC - Eye Exam Eye Exam: EOMI, PERRL - ENT Exam ENT Exam: Mucous Membranes Moist - Neck Exam Neck exam: Positive for: Full Rom - Respiratory Exam Respiratory Exam: Clear to Auscultation Bilateral, NORMAL BREATHING PATTERN - Cardiovascular Exam Cardiovascular Exam: REGULAR RHYTHM, +S1, +S2 - GI/Abdominal Exam GI & Abdominal Exam: Distended, Normal Bowel Sounds, Soft - Extremities Exam Extremities exam: Positive for: full ROM, normal inspection Additional comments: some b/l tremors in UE which the mother states is chronic/due to medications - Neurological Exam Neurological exam: Abnormal Gait, Alert, Oriented x3 Additional comments: per report patient has gait abnormality; does not appear to show any other acute focal abnormality - Psychiatric Exam Additional comments: blunted affect - Skin Skin Exam: Dry, Warm Results - Vital Signs Recent Vital Signs: Last Vital Signs Temp 98.3 F 12/17/18 22:05 Pulse 105 H 12/17/18 22:05 Resp 15 12/17/18 22:05 BP 165/97 H 12/17/18 22:05 Pulse Ox 100 12/17/18 22:05 - Labs Result Diagrams: 12/17/18 19:20 12/17/18 19:20 Labs: Laboratory Results - last 24 hr 12/17/18 12/17/18 12/17/18 19:20 19:20 19:57 WBC 12.0 H RBC 3.73 L Hgb 10.5 L Hct 31.6 L MCV 84.8 D MCH 28.2 MCHC 33.2 RDW 16.4 H Plt Count 314 MPV 7.8 Neut % (Auto) 73.1 Lymph % (Auto) 16.1 L [place] % (Auto) 9.4 Eos % (Auto) 1.1 Baso % (Auto) 0.3 Neut # (Auto) 8.8 H Lymph # (Auto) 1.9 [place] # (Auto) 1.1 H Eos # (Auto) 0.1 Baso # (Auto) 0.0 PT INR APTT Sodium 140 Potassium 3.7 Chloride 101 Carbon Dioxide 24 Anion Gap 19 BUN 28 H Creatinine 2.2 H Est GFR ( Amer) 41 Est GFR (Non-Af Amer) 33 Random Glucose 108 Calcium 10.4 H Total Bilirubin 0.2 AST 24 ALT 21 Alkaline Phosphatase 112 Total Protein 7.9 Albumin 4.2 Globulin 3.7 Albumin/Globulin Ratio 1.1 Urine Color Yellow Urine Clarity Slighty-cloudy Urine pH 6.0 Ur Specific [place] 1.011 Urine Protein Negative Urine Glucose (UA) Neg Urine Ketones Negative Urine Blood Negative Urine Nitrate Negative Urine Bilirubin Negative Urine Urobilinogen 0.2-1.0 Ur Leukocyte Esterase Mod Urine RBC (Auto) 3 Urine Microscopic WBC 68 H Ur Squamous Epith Cells < 1 Urine Bacteria Rare 12/17/18 21:29 WBC RBC Hgb Hct MCV MCH MCHC RDW Plt Count MPV Neut % (Auto) Lymph % (Auto) [place] % (Auto) Eos % (Auto) Baso % (Auto) Neut # (Auto) Lymph # (Auto) [place] # (Auto) Eos # (Auto) Baso # (Auto) PT 13.0 INR 1.1 APTT 39.2 H Sodium Potassium Chloride Carbon Dioxide Anion Gap BUN Creatinine Est GFR ( Amer) Est GFR (Non-Af Amer) Random Glucose Calcium Total Bilirubin AST ALT Alkaline Phosphatase Total Protein Albumin Globulin Albumin/Globulin Ratio Urine Color Urine Clarity Urine pH Ur Specific [place] Urine Protein Urine Glucose (UA) Urine Ketones Urine Blood Urine Nitrate Urine Bilirubin Urine Urobilinogen Ur Leukocyte Esterase Urine RBC (Auto) Urine Microscopic WBC Ur Squamous Epith Cells Urine Bacteria - EKG Data EKG Interpreted by: Myself EKG shows normal: Sinus rhythm - EKG Data EKG comments: Sinus tach - Imaging and Cardiology CT scan - head Status: Image reviewed by me, Report reviewed by me (R cerebellum with dec attenuation susp for mass vs. subac infarct; brainstem/cerebellar edema; herniation not excluded) Assessment & Plan (1) Altered mental status Status: Acute (2) Gait abnormality Status: Acute (3) Brain mass Assessment and Plan: 38 y/o male with newly discovered R sided brain mass with edema and mass effect, mental status changes, and gait abnormality -Admit to ICU -Neuro checks q4h -Continue decadron 4 mg IV q6h -Protonix for GI PPx while on decadron -Per neurosurgery, no seizure ppx for now -Neurosurgery consult in AM (Mary Lou) -Neurology consult in AM -Will defer MRI to neurology -- ideally with contrast, but patient has abnormal renal function Status: Acute (4) CKD (chronic kidney disease) Assessment and Plan: Stable. -Dose all medications renally Status: Chronic (5) Hypertension Assessment and Plan: Stable. -Continue home BP medications Status: Chronic (6) Schizophrenia Assessment and Plan: Given changes in mental status/gait abnormality/mass will hold medications overnight. -Neurology assessment in AM -Psych consult Status: Chronic (7) Anxiety Status: Acute (8) Depression Status: Acute (9) DVT prophylaxis Assessment and Plan: No lovenox/heparin at this time given new intracranial mass Status: Acute
[2018-12-17] MEDS ORDERED: Bisacodyl 5mg EC Tab PO STA (22:46)
[2018-12-17] MEDS: Dexamethasone 4 mg/1 ml IVP SCH (23:27)
[2018-12-17] MEDS ORDERED: Labetalol 5mg/ml (4ml) IVP PRN (23:43)
[2018-12-18 05:24] LABS: CALCIUM 10.5 mg/dL (8.4-10.2); HEMOGLOBIN 11.3 g/dL (12.0-18.0); MEAN CELL VOLUME 84.9 fl (80.0-94.0); MEAN CORPUSCULAR HEMOGLOBIN 28.3 pg (27.0-31.0); MEAN CORPUSCULAR HGB CONC 33.3 g/dL (33.0-37.0); RBC 3.99 Mil/uL (4.40-5.90); RED CELL DISTRIBUTION WIDTH 16.6 % (11.5-14.5)
[2018-12-18] MEDS: Dexamethasone 4 mg/1 ml IVP SCH ×3 (05:51→11:39)
--- NOTE | 2018-12-18 07:49 | CP.PCM.CON ---
History of Present Illness - History of Present Illness History of Present Illness: Psychiatry consult note CC: Intracranial mass with edema and mass effect HPI: 38 y/o male with h/o schizophrenia, HTN and CKD who came in with LOPEZ/N/V, and was found to have an IC mass. Patient's mother states that patient has 'not been himself' and 'not walking right' for the past week and has also been complaining of intermittent headaches for the past 3-4 days. Facilitator spoke to patient's mother, who confirmed that the patient has a history of schizophrenia. Patient is currently denying depression/anxiety/AH/VH/SI/HI. He has constricted affect but denies acute psychiatric complaints to personal lines underwriter. Patient is currently followed by a PACT team. Facilitator confirmed with patient's mother and [facility] pharmacy ([phone]) that patient is current prescribed and compliant with Clozapine 300 mg PO Q12, Cogentin 1 mg PO BID, Haldol 5 mg PO Daily/ 10 mg PO Daily@1700; Oxcarbazepine 150 mg PO BID. PCP: Dr. Harry Mathur PPHx: Schizophrenia; current treatment with PACT team. Current medications: Clozapine 300 mg PO Q12, Cogentin 1 mg PO BID, Haldol 5 mg PO Daily/ 10 mg PO Daily@1700; Oxcarbazepine 150 mg PO BID MHx: HTN, CKD SHx: Recent admission for obstructive uropathy with suprapubic catheter placement and removal of stones; b/l ureteral stents in 2014 Allergy: NKDA Family Hx: M side- HTN Social Hx: Lives with family, no toboacco, no EtOH, no illicit drugs Impression: 38 yo male w/ h/o schizophrenia vs schizoaffective disorder, presents w/ R sided brain mass w/ edema and mass effect, AMS and gait abnormality. Patient's AMS, likely secondary to acute medical issues, not chronic mental illness. -Recommend to continue current psychiatric medications unless contraindicated due to acute medical issues -Recommend neurology consult -Monthly CBC w/ diff monitoring for Clozaril -No acute psychiatric admission indicated at this time Past Patient History - Infectious Disease Hx of Infectious Diseases: None - Past Medical History & Family History Past Medical History?: Yes - Past Social History Smoking Status: Heavy Smoker > 10 Cigarettes Daily - CARDIAC Hx Cardiac Disorders: No Hx Angina: No Hx Atrial Fibrillation: No Hx Cardia Arrhythmia: No Hx Circulatory Problems: No Hx Congestive Heart Failure: No Hx Heart Attack: No Hx Heart Murmur: No Hx Heart Transplant: No Hx Hypercholesterolemia: No Hx Hypertension: Yes Hx Hypotension: No Hx Internal Defibrillator: No Hx Mitral Valve Prolapse: No Hx Pacemaker: No Hx Peripheral Edema: No Hx Peripheral Vascular Disease: No - PULMONARY Hx Respiratory Disorders: No Hx Asthma: No Hx Bronchitis: No Hx Chronic Obstructive Pulmonary Disease (COPD): No Hx Emphysema: No Hx Lung Cancer: No Hx Pneumonia: No Hx Pulmonary Edema: No Hx Pulmonary Embolism: No Hx Respiratory Aspiration: No Hx Respiratory Tract Infection: No Hx Sleep Apnea: No Hx Tuberculosis: No - NEUROLOGICAL Hx Neurological Disorder: No Hx Alzheimer's Disease: No HX Cerebrovascular Accident: No Hx Dementia: No Hx Dizziness: Yes (dizzy/syncopal episode prior to admission) Hx Meningitis: No Hx Migraine: No Hx Multiple Sclerosis: No Hx Paralysis: No Hx Parkinson's Disease: No Hx Seizures: No Hx Syncope: Yes Hx Transient Ischemic Attacks (TIA): No Hx Vertigo: No - HEENT Hx HEENT Problems: Yes Hx Blind: No Hx Cataracts: No Hx Deafness: No Hx Difficulty Chewing: No Hx Epistaxis: No Hx Glaucoma: No Hx Macular Degeneration: No Hx Sinusitis: No Other/Comment: Reading glasses - RENAL Hx Chronic Kidney Disease: Yes (as per h&p) Hx Dialysis: No Hx Kidney Stones: Yes Hx Neurogenic Bladder: No Hx Pyelonephritis: No Hx Renal (Kidney) Cancer: No Hx Renal Failure: No Other/Comment: history of CKD. recently admitted for obstructive uropathy w/ suprapubic catheter - ENDOCRINE/METABOLIC Hx Endocrine Disorders: No Hx Adrenal Cancer: No Hx Diabetes Insipidus: No Hx Diabetes Mellitus Type 1: No Hx Diabetes Mellitus Type 2: No (PATIENT DENIES) Hx Hyperthyroidism: No Hx Hypothyroidism: No Hx Systemic Lupus Erythematosus: No Other/Comment: ?borderline DM - HEMATOLOGICAL/ONCOLOGICAL Hx Blood Disorders: No Hx AIDS: No Hx Anemia: No Hx Blood Transfusions: No Hx Blood Transfusion Reaction: No Hx Bruising: No Hx Cancer: No Hx Chemotherapy: No Hx Cirrhosis: No Hx Gum Bleeding: No Hx Hemophilia: No Hx Hepatitis A: No Hx Hepatitis B: No Hx Hepatitis C: No Hx Human Immunodeficiency Virus (HIV): No Hx Leukemia: No Hx Metastesis: No Hx Shingles: No Hx Sickle Cell Disease: No Hx Unexplained Bleeding: No Hx von Willebrand's Disease: No - INTEGUMENTARY Hx Dermatological Problems: Yes Hx Basil Cell: No Hx Reyes: No Hx Cellulitis: No Hx Eczema: No Hx Melanoma: No Hx Psoriasis: No Hx Squamous Cell: No Other/Comment: dry skin. chicken pox at 5 yrs old - MUSCULOSKELETAL/RHEUMATOLOGICAL Hx Musculoskeletal Disorders: No Hx Arthritis: No Hx Back Pain: No Hx Degenerative Joint Disease: No Hx Falls: No Hx Fractures: No Hx Gout: No Hx Herniated Disk: No Hx Myasthenia Gravis: No Hx Osteoarthritis: No Hx Osteomyelitis: No Hx Osteoporosis: No Hx Rhabdomyolysis: No Hx Rheumatoid Arthritis: No Hx Spinal Stenosis: No Hx Unsteady Gait: Yes (as per mother, "not walking right" recently) - GASTROINTESTINAL Hx Gastrointestinal Disorders: No Hx Bowel Surgery: No Hx Clostridium Difficile: No Hx Colitis: No Hx Colostomy: No Hx Constipation: Yes (chronic) Hx Crohn's Disease: No Hx Diarrhea: No Hx Diverticulitis: No Hx Esophageal Varices: No Hx Fatty Liver Disease: No Hx Gall Bladder Disease: No Hx Gastritis: No Hx Gastroesophageal Reflux: No Hx Hemorrhoids: No Hx Ileostomy: No Hx Irritable Bowel: No Hx Liver Failure: No Hx Nausea: Yes Hx Pancreatitis: No HX Swallowing Problems: No Hx Ulcer: No Hx Vomiting: Yes - GENITOURINARY/GYNECOLOGICAL Hx Genitourinary Disorders: Yes Hx Bladder Cancer: No Hx Bladder Stone: Yes Hx Hematuria: No Hx Incontinence: Yes (occasionally incontinent) Hx Prostate Cancer: No Hx Prostate Problems: No Hx Reproductive Disorders: No Hx Sexually Transmitted Disorders: No Hx Urinary Tract Infection: No Other/Comment: BILATERAL HYDRONEPHROSIS - PSYCHIATRIC Hx Anxiety: Yes Hx Depression: Yes Hx Emotional Abuse: No Hx Hallucinations: Yes Hx Panic Symptoms: Yes Hx Paranoia: Yes Hx Post Traumatic Stress Disorder: No Hx Psychosis: No Hx Physical Abuse: No Hx Schizophrenia: Yes Hx Sexual Abuse: No Hx Substance Use: No - SURGICAL HISTORY Hx Surgeries: Yes Other/Comment: bilateral uretral stents 2015 - ANESTHESIA Hx Anesthesia: Yes Hx Anesthesia Reactions: No Hx Malignant Hyperthermia: No Has any member of the family had a problem w/ anesthesia?: No Meds Allergies/Adverse Reactions: Allergies Allergy/AdvReac Type Severity Reaction Status Date / Time No Known Allergies Allergy Verified 12/17/18 18:36 - Medications Medications: Current Medications Acetaminophen (Tylenol 325mg Tab) 650 mg PO Q6H PRN PRN Reason: Headache Amlodipine Besylate (Norvasc) 10 mg PO DAILY [facility] Bisacodyl (Dulcolax) 5 mg PO DAILY PRN PRN Reason: Constipation Dexamethasone (Decadron Inj) 4 mg IVP Q6H NANCY Last Admin: 12/18/18 05:51 Dose: 4 mg Docusate Sodium (Colace) 100 mg PO BID [facility] Ceftriaxone Sodium 1 gm/ (Sodium Chloride) 100 mls @ 100 mls/hr IVPB DAILY NANCY; Protocol Labetalol HCl (Trandate) 10 mg IVP Q6H PRN PRN Reason: SBP > 170 Last Admin: 12/18/18 03:10 Dose: 10 mg Metoprolol Tartrate (Lopressor) 50 mg PO DAILY [facility] Ondansetron HCl (Zofran Inj) 4 mg IVP Q6H PRN PRN Reason: Nausea/Vomiting Pantoprazole Sodium (Protonix Ec Tab) 40 mg PO DAILY [facility] Results - Vital Signs Recent Vital Signs: Last Vital Signs Temp 98.5 F 12/18/18 04:00 Pulse 108 H 12/18/18 06:00 Resp 14 12/18/18 06:00 BP 154/92 H 12/18/18 06:00 Pulse Ox 99 12/18/18 06:00 - Labs Result Diagrams: 12/18/18 04:20 12/18/18 04:20 Labs: Laboratory Results - last 24 hr 12/17/18 12/17/18 12/17/18 19:04 19:20 19:20 WBC 12.0 H RBC 3.73 L Hgb 10.5 L Hct 31.6 L MCV 84.8 D MCH 28.2 MCHC 33.2 RDW 16.4 H Plt Count 314 MPV 7.8 Neut % (Auto) 73.1 Lymph % (Auto) 16.1 L [place] % (Auto) 9.4 Eos % (Auto) 1.1 Baso % (Auto) 0.3 Neut # (Auto) 8.8 H Lymph # (Auto) 1.9 [place] # (Auto) 1.1 H Eos # (Auto) 0.1 Baso # (Auto) 0.0 PT INR APTT Sodium 140 Potassium 3.7 Chloride 101 Carbon Dioxide 24 Anion Gap 19 BUN 28 H Creatinine 2.2 H Est GFR ( Amer) 41 Est GFR (Non-Af Amer) 33 POC Glucose (mg/dL) 104 Random Glucose 108 Calcium 10.4 H Total Bilirubin 0.2 AST 24 ALT 21 Alkaline Phosphatase 112 Total Protein 7.9 Albumin 4.2 Globulin 3.7 Albumin/Globulin Ratio 1.1 Urine Color Urine Clarity Urine pH Ur Specific [place] Urine Protein Urine Glucose (UA) Urine Ketones Urine Blood Urine Nitrate Urine Bilirubin Urine Urobilinogen Ur Leukocyte Esterase Urine RBC (Auto) Urine Microscopic WBC Ur Squamous Epith Cells Urine Bacteria Blood Type Antibody Screen BBK History Checked 12/17/18 12/17/18 12/17/18 19:57 21:29 21:29 WBC RBC Hgb Hct MCV MCH MCHC RDW Plt Count MPV Neut % (Auto) Lymph % (Auto) [place] % (Auto) Eos % (Auto) Baso % (Auto) Neut # (Auto) Lymph # (Auto) [place] # (Auto) Eos # (Auto) Baso # (Auto) PT 13.0 INR 1.1 APTT 39.2 H Sodium Potassium Chloride Carbon Dioxide Anion Gap BUN Creatinine Est GFR ( Amer) Est GFR (Non-Af Amer) POC Glucose (mg/dL) Random Glucose Calcium Total Bilirubin AST ALT Alkaline Phosphatase Total Protein Albumin Globulin Albumin/Globulin Ratio Urine Color Yellow Urine Clarity Slighty-cloudy Urine pH 6.0 Ur Specific [place] 1.011 Urine Protein Negative Urine Glucose (UA) Neg Urine Ketones Negative Urine Blood Negative Urine Nitrate Negative Urine Bilirubin Negative Urine Urobilinogen 0.2-1.0 Ur Leukocyte Esterase Mod Urine RBC (Auto) 3 Urine Microscopic WBC 68 H Ur Squamous Epith Cells < 1 Urine Bacteria Rare Blood Type O POSITIVE Antibody Screen Negative BBK History Checked Patient has bt 12/18/18 12/18/18 04:20 04:20 WBC 15.0 H RBC 3.99 L Hgb 11.3 L Hct 33.8 L MCV 84.9 MCH 28.3 MCHC 33.3 RDW 16.6 H Plt Count 332 MPV Neut % (Auto) Lymph % (Auto) [place] % (Auto) Eos % (Auto) Baso % (Auto) Neut # (Auto) Lymph # (Auto) [place] # (Auto) Eos # (Auto) Baso # (Auto) PT INR APTT Sodium 142 Potassium 4.1 Chloride 107 Carbon Dioxide 22 Anion Gap 17 BUN 28 H Creatinine 2.3 H Est GFR ( Amer) 38 Est GFR (Non-Af Amer) 32 POC Glucose (mg/dL) Random Glucose 159 H Calcium 10.5 H Total Bilirubin AST ALT Alkaline Phosphatase Total Protein Albumin Globulin Albumin/Globulin Ratio Urine Color Urine Clarity Urine pH Ur Specific [place] Urine Protein Urine Glucose (UA) Urine Ketones Urine Blood Urine Nitrate Urine Bilirubin Urine Urobilinogen Ur Leukocyte Esterase Urine RBC (Auto) Urine Microscopic WBC Ur Squamous Epith Cells Urine Bacteria Blood Type Antibody Screen BBK History Checked
[2018-12-18] MEDS ORDERED: Pantoprazole 40 mg EC Tab PO SCH (09:00)
--- NOTE | 2018-12-18 10:18 | CP.PCM.PN ---
<Ernesto Martinez - Last Filed: 12/18/18 13:28> Subjective - Date & Time of Evaluation Date of Evaluation: 12/18/18 Time of Evaluation: 10:18 - Subjective Subjective: pt seen and evaluated at bedside this morning. Lying comfortably, NAD. HOB elevated. Alert and oriented. No complaints at this time. Pt is afebrile and hemodynamically stable Objective - Vital Signs/Intake and Output Vital Signs (last 24 hours): Temp Pulse Resp BP Pulse Ox 98.7 F 110 H 14 148/95 H 98 12/18/18 08:00 12/18/18 08:00 12/18/18 08:00 12/18/18 08:00 12/18/18 08:00 Intake and Output: 12/18/18 12/18/18 06:59 18:59 Intake Total 1000 Output Total 1470 Balance -470 - Medications Medications: Current Medications Acetaminophen (Tylenol 325mg Tab) 650 mg PO Q6H PRN PRN Reason: Headache Amlodipine Besylate (Norvasc) 10 mg PO DAILY [facility] Benztropine Mesylate (Cogentin) 1 mg PO BID [facility] Bisacodyl (Dulcolax) 5 mg PO DAILY PRN PRN Reason: Constipation Clozapine (Clozaril) 300 mg PO Q12 [facility] Dexamethasone (Decadron Inj) 4 mg IVP Q6H [facility] Last Admin: 12/18/18 05:51 Dose: 4 mg Docusate Sodium (Colace) 100 mg PO BID [facility] Haloperidol (Haldol) 5 mg PO DAILY [facility] Haloperidol (Haldol) 10 mg PO DAILY@1700 [facility] Ceftriaxone Sodium 1 gm/ (Sodium Chloride) 100 mls @ 100 mls/hr IVPB DAILY [facility]; Protocol Labetalol HCl (Trandate) 10 mg IVP Q6H PRN PRN Reason: SBP > 170 Last Admin: 12/18/18 03:10 Dose: 10 mg Metoprolol Tartrate (Lopressor) 50 mg PO DAILY [facility] Ondansetron HCl (Zofran Inj) 4 mg IVP Q6H PRN PRN Reason: Nausea/Vomiting Oxcarbazepine (Trileptal) 150 mg PO BID [facility] Pantoprazole Sodium (Protonix Ec Tab) 40 mg PO DAILY [facility] - Labs Labs: 12/18/18 04:20 12/18/18 04:20 PT 13.0 Seconds (9.8-13.1) 12/17/18 21:29 INR 1.1 12/17/18 21:29 APTT 39.2 Seconds (25.6-37.1) H 12/17/18 21:29 - Constitutional Appears: Non-toxic, No Acute Distress - Head Exam Head Exam: ATRAUMATIC, NORMOCEPHALIC - Eye Exam Eye Exam: EOMI, PERRL - ENT Exam ENT Exam: Mucous Membranes Moist - Respiratory Exam Respiratory Exam: Clear to Ausculation Bilateral, NORMAL BREATHING PATTERN. absent: Rales, Rhonchi, Wheezes - Cardiovascular Exam Cardiovascular Exam: REGULAR RHYTHM, RRR, +S1, +S2. absent: Tachycardia, JVD, Rubs, Murmur - GI/Abdominal Exam GI & Abdominal Exam: Soft, Normal Bowel Sounds. 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 Mass effect is exerted towards the left, impressing the lower brainstem and medial left cerebellar hemisphere as well. -pt would likely benefit from transfer to [facility] hospital if surgical intervention is recommended 2) Gait abnormality -likely 2/2 to pontine mass 3) CKD Stable. -Dose all medications renally 4) Hypertension Stable. -Continue home BP medications 5) Schizophrenia Given changes in mental status/gait abnormality/mass will hold medications overnight. -Neurology assessment in AM -Psych consult 7) Anxiety c/w psych meds 8) Depression c/w psych round 9) DVT prophylaxis No lovenox/heparin at this time given new intracranial mass <Nidhi Mejia - Last Filed: 12/18/18 17:13> Objective - Vital Signs/Intake and Output Vital Signs (last 24 hours): Temp Pulse Resp BP Pulse Ox 98.9 F 104 H 17 154/92 H 96 12/18/18 16:00 12/18/18 16:00 12/18/18 16:00 12/18/18 16:00 12/18/18 16:00 Intake and Output: 12/18/18 12/18/18 06:59 18:59 Intake Total 1000 1460 Output Total 1470 500 Balance -470 960 - Medications Medications: Current Medications Acetaminophen (Tylenol 325mg Tab) 650 mg PO Q6H PRN PRN Reason: Headache Amlodipine Besylate (Norvasc) 10 mg PO DAILY [facility] Last Admin: 12/18/18 11:18 Dose: 10 mg Benztropine Mesylate (Cogentin) 1 mg PO BID [facility] Last Admin: 12/18/18 16:18 Dose: 1 mg Bisacodyl (Dulcolax) 5 mg PO DAILY PRN PRN Reason: Constipation Clozapine (Clozaril) 300 mg PO Q12 [facility] Last Admin: 12/18/18 11:42 Dose: 300 mg Dexamethasone (Decadron Inj) 10 mg IVP Q6H [facility] Last Admin: 12/18/18 16:27 Dose: 10 mg Docusate Sodium (Colace) 100 mg PO BID [facility] Last Admin: 12/18/18 16:18 Dose: 100 mg Haloperidol (Haldol) 5 mg PO DAILY [facility] Last Admin: 12/18/18 11:17 Dose: 5 mg Haloperidol (Haldol) 10 mg PO DAILY@1700 [facility] Last Admin: 12/18/18 16:19 Dose: 10 mg Ceftriaxone Sodium 1 gm/ (Sodium Chloride) 100 mls @ 100 mls/hr IVPB DAILY [facility]; Protocol Last Admin: 12/18/18 11:19 Dose: 100 mls/hr Labetalol HCl (Trandate) 10 mg IVP Q6H PRN PRN Reason: SBP > 170 Last Admin: 12/18/18 03:10 Dose: 10 mg Mannitol (Mannitol) 25 gm IV Q8 [facility] Stop: 12/20/18 17:01 Last Admin: 12/18/18 16:20 Dose: 25 gm Metoprolol Tartrate (Lopressor) 50 mg PO DAILY [facility] Last Admin: 12/18/18 11:18 Dose: 50 mg Ondansetron HCl (Zofran Inj) 4 mg IVP Q6H PRN PRN Reason: Nausea/Vomiting Oxcarbazepine (Trileptal) 150 mg PO BID [facility] Last Admin: 12/18/18 16:27 Dose: 150 mg Pantoprazole Sodium (Protonix Ec Tab) 40 mg PO DAILY [facility] Last Admin: 12/18/18 11:19 Dose: 40 mg - Labs Labs: 12/18/18 04:20 12/18/18 04:20 PT 13.0 Seconds (9.8-13.1) 12/17/18 21:29 INR 1.1 12/17/18 21:29 APTT 39.2 Seconds (25.6-37.1) H 12/17/18 21:29 Attending/Attestation - Attestation I have personally seen and examined this patient.: Yes I have fully participated in the care of the patient.: Yes I have reviewed all pertinent clinical information, including history, physical exam and plan: Yes
--- NOTE | 2018-12-18 10:57 | CP.CCUPN ---
CCU Subjective - Physician Review Subjective (Free Text): 12/18/18 10:55 Awake and alert, but slow to respond, disoriented to place and time, no overall distress. Denies any headaches, dizziness or new focal weakness. Given prn labetalol overnight, SBP now in 140-150s range, HR still tachy at 110s. 98% on RA. Other vitals and I/O's reviewed. No polyuria noted. ROS: No other pertinent negs or positives on 10+ system review obtainable due to coma PMSFH: All other Nursing and physician documentation reviewed to date; no new pertinent info noted relevant to current medical problems. EXAM- HEENT: no icterus, no gaze preference, pupils with normal reactivity noted, no nystagmus NECK: no JVD visible, supple, carotids equal upstroke bilat/no bruit CHEST: clear BS bilat, no wheezes audible HEART: regular, distant, S1S2, no rubs ABD: soft, obese, no distension, no focal tenderness, no tympany, no guarding, no organomegaly, BS hypoactive. EXT: no LE edema, no mottling; no calf tenderness or palpable cords, distal pulses intact and symmetrical, no cyanosis. NEURO: No gross focal motor deficits, +ataxic gait, +[id number] dysmetria SKIN: no rashes, warm and dry LABS: WBC= 15.0 HGB= 11.3 PLTs= 332K PT INR normal PTT = 39.2 Na= 142 K= 4.1 CL= 107 HCO3= 22 BUN/Cr= 28/2.3 BS= 159 IMPRESSION / MAJOR PROBLEMS NOW: 1. 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 2. Accelerated HTN 3. h/o Schizophrenia 4. CKD III PLAN: 1. Watch neurochecks and overall mental status, avoid any excessive sedative effects from anti-psychotic meds. Await official MRI Brain results. 2. Watch for need for airway protection; has high propensity to decompensate quickly from cerebellar mass effects. 3. Decadron started as recommended by NeuroSurg. 4. In my opinion, and considering patients age, could benefit from inter- hospital transfer to dedicated NeuroICU for possible invasive Neuro and ICP monitoring. Aware of previous notes overnight mentioning poor prognosis. Overall status, has not improved.
[2018-12-18] MEDS ORDERED: Mannitol 12.5 gm/50 ml Inj IV ONE (11:27)
[2018-12-18] MEDS ORDERED: Dexamethasone 10 MG in Sodium Chloride 0.9% 50 ML IVPB ONE (11:29)
--- NOTE | 2018-12-18 11:53 | MRI ---
Date of service: 12/18/2018 PROCEDURE: MRI BRAIN WITHOUT CONTRAST HISTORY: headache, pontine mass COMPARISON: None available. TECHNIQUE: Multiplanar, multisequence MR images of the brain were obtained without intravenous contrast enhancement. FINDINGS: HEMORRHAGE: None DWI: No evidence of an acute or early subacute infarction. BRAIN PARENCHYMA: A cystic lesion is identified at the right cerebellar hemisphere extending into the right cerebellar peduncle measuring 4.1 x 3.5 x 2.5 cm (transverse by anteroposterior by superoinferior dimensions) with significant local reactive change related, particularly medially into the region of the vermis. In fact a mass may be present in the vermis and medial right cerebral hemisphere inseparable from the cyst. These findings exert mass effect on the lower brainstem as well as the inferior margins of the 4th ventral causing obstructive hydrocephalus transependymal edema present surrounding the bilateral lateral ventricles. Mass effect distorts the folial pattern at the left cerebellum as well. VENTRICLES: Obstructive hydrocephalus as per description above. CRANIUM: Unremarkable. ORBITS: Grossly unremarkable. PARANASAL SINUSES/MASTOIDS: Clear VASCULAR SYSTEM: Skull base flow voids intact. OTHER FINDINGS: None. IMPRESSION: Findings suspicious for possible primary brain neoplasm at the right cerebellum and vermis resulting in obstructive hydrocephalus with transependymal edema surrounding the bilateral lateral ventricles. The differential diagnosis would be metastasis or abscess. Mass effect is exerted toward the left, impressing the lower brainstem and medial left cerebellar hemisphere as well. Lack of intravenous contrast inadequately evaluates this lesion and contrast enhanced MRI is advised for added characterization.
--- NOTE | 2018-12-18 12:30 | CT ---
Date of service: 12/17/2018 PROCEDURE: CT HEAD WITHOUT CONTRAST. HISTORY: headache COMPARISON: None available. TECHNIQUE: Axial computed tomography images were obtained through the head/brain without intravenous contrast. Radiation dose: Total exam DLP = 848.79 mGy-cm. This CT exam was performed using one or more of the following dose reduction techniques: Automated exposure control, adjustment of the mA and/or kV according to patient size, and/or use of iterative reconstruction technique. FINDINGS: HEMORRHAGE: None apparent. BRAIN: There is a large hypodense lesion identified in the right cerebellum with prominent edema affecting the vermis and medial bilateral cerebellar hemispheres. Pattern suspicious for neoplasm or possible abscess. Follow-up MRI with and without contrast is advised for added characterization. Obstructive hydrocephalus is developed due to mass effect effacing the inferior margins of the 4th ventricle. Posterior and right side of the brainstem are impressed and midline shift toward the left impresses the vermis and medial left cerebellar hemisphere as well. Other than hydrocephalus and transependymal edema surrounding the bilateral lateral ventricles, supratentorial findings are unremarkable otherwise . VENTRICLES: Obstructive hydrocephalus as discussed above. CALVARIUM: Unremarkable. PARANASAL SINUSES: Unremarkable as visualized. No significant inflammatory changes. MASTOID AIR CELLS: Unremarkable as visualized. No inflammatory changes. OTHER FINDINGS: None. IMPRESSION: Cerebellar/vermian mass resulting in occlusion of the inferior margins of the 4th ventricle and related obstructive hydrocephalus with transependymal edema. Majority of the mass appears cystic with likely soft tissue components adjacent. Follow-up MRI of the brain without contrast is advised for added characterization.
--- NOTE | 2018-12-18 13:32 | CP.PCM.CON ---
History of Present Illness - History of Present Illness History of Present Illness: consult dictated PT with huge CP angle tumor with brainstem compression and hydocephalus Fully agree with Dr sundeep mathis to transfer to tertiary care ctr with microneurosurgical capability and neuro ICU in interem cont steroids and HOB elevation Past Patient History - Infectious Disease Hx of Infectious Diseases: None - Past Medical History & Family History Past Medical History?: Yes - Past Social History Smoking Status: Heavy Smoker > 10 Cigarettes Daily - CARDIAC Hx Cardiac Disorders: No Hx Angina: No Hx Atrial Fibrillation: No Hx Cardia Arrhythmia: No Hx Circulatory Problems: No Hx Congestive Heart Failure: No Hx Heart Attack: No Hx Heart Murmur: No Hx Heart Transplant: No Hx Hypercholesterolemia: No Hx Hypertension: Yes Hx Hypotension: No Hx Internal Defibrillator: No Hx Mitral Valve Prolapse: No Hx Pacemaker: No Hx Peripheral Edema: No Hx Peripheral Vascular Disease: No - PULMONARY Hx Respiratory Disorders: No Hx Asthma: No Hx Bronchitis: No Hx Chronic Obstructive Pulmonary Disease (COPD): No Hx Emphysema: No Hx Lung Cancer: No Hx Pneumonia: No Hx Pulmonary Edema: No Hx Pulmonary Embolism: No Hx Respiratory Aspiration: No Hx Respiratory Tract Infection: No Hx Sleep Apnea: No Hx Tuberculosis: No - NEUROLOGICAL Hx Neurological Disorder: No Hx Alzheimer's Disease: No HX Cerebrovascular Accident: No Hx Dementia: No Hx Dizziness: Yes (dizzy/syncopal episode prior to admission) Hx Meningitis: No Hx Migraine: No Hx Multiple Sclerosis: No Hx Paralysis: No Hx Parkinson's Disease: No Hx Seizures: No Hx Syncope: Yes Hx Transient Ischemic Attacks (TIA): No Hx Vertigo: No - HEENT Hx HEENT Problems: Yes Hx Blind: No Hx Cataracts: No Hx Deafness: No Hx Difficulty Chewing: No Hx Epistaxis: No Hx Glaucoma: No Hx Macular Degeneration: No Hx Sinusitis: No Other/Comment: Reading glasses - RENAL Hx Chronic Kidney Disease: Yes (as per h&p) Hx Dialysis: No Hx Kidney Stones: Yes Hx Neurogenic Bladder: No Hx Pyelonephritis: No Hx Renal (Kidney) Cancer: No Hx Renal Failure: No Other/Comment: history of CKD. recently admitted for obstructive uropathy w/ suprapubic catheter - ENDOCRINE/METABOLIC Hx Endocrine Disorders: No Hx Adrenal Cancer: No Hx Diabetes Insipidus: No Hx Diabetes Mellitus Type 1: No Hx Diabetes Mellitus Type 2: No (PATIENT DENIES) Hx Hyperthyroidism: No Hx Hypothyroidism: No Hx Systemic Lupus Erythematosus: No Other/Comment: ?borderline DM - HEMATOLOGICAL/ONCOLOGICAL Hx Blood Disorders: No Hx AIDS: No Hx Anemia: No Hx Blood Transfusions: No Hx Blood Transfusion Reaction: No Hx Bruising: No Hx Cancer: No Hx Chemotherapy: No Hx Cirrhosis: No Hx Gum Bleeding: No Hx Hemophilia: No Hx Hepatitis A: No Hx Hepatitis B: No Hx Hepatitis C: No Hx Human Immunodeficiency Virus (HIV): No Hx Leukemia: No Hx Metastesis: No Hx Shingles: No Hx Sickle Cell Disease: No Hx Unexplained Bleeding: No Hx von Willebrand's Disease: No - INTEGUMENTARY Hx Dermatological Problems: Yes Hx Basil Cell: No Hx Reyes: No Hx Cellulitis: No Hx Eczema: No Hx Melanoma: No Hx Psoriasis: No Hx Squamous Cell: No Other/Comment: dry skin. chicken pox at 5 yrs old - MUSCULOSKELETAL/RHEUMATOLOGICAL Hx Musculoskeletal Disorders: No Hx Arthritis: No Hx Back Pain: No Hx Degenerative Joint Disease: No Hx Falls: No Hx Fractures: No Hx Gout: No Hx Herniated Disk: No Hx Myasthenia Gravis: No Hx Osteoarthritis: No Hx Osteomyelitis: No Hx Osteoporosis: No Hx Rhabdomyolysis: No Hx Rheumatoid Arthritis: No Hx Spinal Stenosis: No Hx Unsteady Gait: Yes (as per mother, "not walking right" recently) - GASTROINTESTINAL Hx Gastrointestinal Disorders: No Hx Bowel Surgery: No Hx Clostridium Difficile: No Hx Colitis: No Hx Colostomy: No Hx Constipation: Yes (chronic) Hx Crohn's Disease: No Hx Diarrhea: No Hx Diverticulitis: No Hx Esophageal Varices: No Hx Fatty Liver Disease: No Hx Gall Bladder Disease: No Hx Gastritis: No Hx Gastroesophageal Reflux: No Hx Hemorrhoids: No Hx Ileostomy: No Hx Irritable Bowel: No Hx Liver Failure: No Hx Nausea: Yes Hx Pancreatitis: No HX Swallowing Problems: No Hx Ulcer: No Hx Vomiting: Yes - GENITOURINARY/GYNECOLOGICAL Hx Genitourinary Disorders: Yes Hx Bladder Cancer: No Hx Bladder Stone: Yes Hx Hematuria: No Hx Incontinence: Yes (occasionally incontinent) Hx Prostate Cancer: No Hx Prostate Problems: No Hx Reproductive Disorders: No Hx Sexually Transmitted Disorders: No Hx Urinary Tract Infection: No Other/Comment: BILATERAL HYDRONEPHROSIS - PSYCHIATRIC Hx Anxiety: Yes Hx Depression: Yes Hx Emotional Abuse: No Hx Hallucinations: Yes Hx Panic Symptoms: Yes Hx Paranoia: Yes Hx Post Traumatic Stress Disorder: No Hx Psychosis: No Hx Physical Abuse: No Hx Schizophrenia: Yes Hx Sexual Abuse: No Hx Substance Use: No - SURGICAL HISTORY Hx Surgeries: Yes Other/Comment: bilateral uretral stents 2015 - ANESTHESIA Hx Anesthesia: Yes Hx Anesthesia Reactions: No Hx Malignant Hyperthermia: No Has any member of the family had a problem w/ anesthesia?: No Meds Allergies/Adverse Reactions: Allergies Allergy/AdvReac Type Severity Reaction Status Date / Time No Known Allergies Allergy Verified 12/17/18 18:36 - Medications Medications: Current Medications Acetaminophen (Tylenol 325mg Tab) 650 mg PO Q6H PRN PRN Reason: Headache Amlodipine Besylate (Norvasc) 10 mg PO DAILY [facility] Last Admin: 12/18/18 11:18 Dose: 10 mg Benztropine Mesylate (Cogentin) 1 mg PO BID [facility] Last Admin: 12/18/18 10:59 Dose: 1 mg Bisacodyl (Dulcolax) 5 mg PO DAILY PRN PRN Reason: Constipation Clozapine (Clozaril) 300 mg PO Q12 [facility] Last Admin: 12/18/18 11:42 Dose: 300 mg Dexamethasone (Decadron Inj) 10 mg IVP Q6H [facility] Docusate Sodium (Colace) 100 mg PO BID [facility] Last Admin: 12/18/18 11:00 Dose: 100 mg Haloperidol (Haldol) 5 mg PO DAILY [facility] Last Admin: 12/18/18 11:17 Dose: 5 mg Haloperidol (Haldol) 10 mg PO DAILY@1700 [facility] Ceftriaxone Sodium 1 gm/ (Sodium Chloride) 100 mls @ 100 mls/hr IVPB DAILY [facility]; Protocol Last Admin: 12/18/18 11:19 Dose: 100 mls/hr Labetalol HCl (Trandate) 10 mg IVP Q6H PRN PRN Reason: SBP > 170 Last Admin: 12/18/18 03:10 Dose: 10 mg Mannitol (Mannitol) 25 gm IV Q8 [facility] Stop: 12/20/18 17:01 Metoprolol Tartrate (Lopressor) 50 mg PO DAILY [facility] Last Admin: 12/18/18 11:18 Dose: 50 mg Ondansetron HCl (Zofran Inj) 4 mg IVP Q6H PRN PRN Reason: Nausea/Vomiting Oxcarbazepine (Trileptal) 150 mg PO BID [facility] Last Admin: 12/18/18 11:20 Dose: 150 mg Pantoprazole Sodium (Protonix Ec Tab) 40 mg PO DAILY [facility] Last Admin: 12/18/18 11:19 Dose: 40 mg Results - Vital Signs Recent Vital Signs: Last Vital Signs Temp 99.4 F 12/18/18 12:00 Pulse 113 H 12/18/18 12:00 Resp 15 12/18/18 12:00 BP 164/100 H 12/18/18 12:00 Pulse Ox 100 12/18/18 12:00 - Labs Result Diagrams: 12/18/18 04:20 12/18/18 04:20 Labs: Laboratory Results - last 24 hr 12/17/18 12/17/18 12/17/18 19:04 19:04 19:20 WBC 12.0 H RBC 3.73 L Hgb 10.5 L Hct 31.6 L MCV 84.8 D MCH 28.2 MCHC 33.2 RDW 16.4 H Plt Count 314 MPV 7.8 Neut % (Auto) 73.1 Lymph % (Auto) 16.1 L Crowley % (Auto) 9.4 Eos % (Auto) 1.1 Baso % (Auto) 0.3 Neut # (Auto) 8.8 H Lymph # (Auto) 1.9 Crowley # (Auto) 1.1 H Eos # (Auto) 0.1 Baso # (Auto) 0.0 PT INR APTT Sodium Potassium Chloride Carbon Dioxide Anion Gap BUN Creatinine Est GFR ( Amer) Est GFR (Non-Af Amer) POC Glucose (mg/dL) 104 104 Random Glucose Calcium Total Bilirubin AST ALT Alkaline Phosphatase Total Protein Albumin Globulin Albumin/Globulin Ratio Urine Color Urine Clarity Urine pH Ur Specific [place] Urine Protein Urine Glucose (UA) Urine Ketones Urine Blood Urine Nitrate Urine Bilirubin Urine Urobilinogen Ur Leukocyte Esterase Urine RBC (Auto) Urine Microscopic WBC Ur Squamous Epith Cells Urine Bacteria Blood Type Antibody Screen BBK History Checked 12/17/18 12/17/18 12/17/18 19:20 19:57 21:29 WBC RBC Hgb Hct MCV MCH MCHC RDW Plt Count MPV Neut % (Auto) Lymph % (Auto) Crowley % (Auto) Eos % (Auto) Baso % (Auto) Neut # (Auto) Lymph # (Auto) Crowley # (Auto) Eos # (Auto) Baso # (Auto) PT 13.0 INR 1.1 APTT 39.2 H Sodium 140 Potassium 3.7 Chloride 101 Carbon Dioxide 24 Anion Gap 19 BUN 28 H Creatinine 2.2 H Est GFR ( Amer) 41 Est GFR (Non-Af Amer) 33 POC Glucose (mg/dL) Random Glucose 108 Calcium 10.4 H Total Bilirubin 0.2 AST 24 ALT 21 Alkaline Phosphatase 112 Total Protein 7.9 Albumin 4.2 Globulin 3.7 Albumin/Globulin Ratio 1.1 Urine Color Yellow Urine Clarity Slighty-cloudy Urine pH 6.0 Ur Specific [place] 1.011 Urine Protein Negative Urine Glucose (UA) Neg Urine Ketones Negative Urine Blood Negative Urine Nitrate Negative Urine Bilirubin Negative Urine Urobilinogen 0.2-1.0 Ur Leukocyte Esterase Mod Urine RBC (Auto) 3 Urine Microscopic WBC 68 H Ur Squamous Epith Cells < 1 Urine Bacteria Rare Blood Type Antibody Screen BBK History Checked 12/17/18 12/18/18 12/18/18 21:29 04:20 04:20 WBC 15.0 H RBC 3.99 L Hgb 11.3 L Hct 33.8 L MCV 84.9 MCH 28.3 MCHC 33.3 RDW 16.6 H Plt Count 332 MPV Neut % (Auto) Lymph % (Auto) Crowley % (Auto) Eos % (Auto) Baso % (Auto) Neut # (Auto) Lymph # (Auto) [place] # (Auto) Eos # (Auto) Baso # (Auto) PT INR APTT Sodium 142 Potassium 4.1 Chloride 107 Carbon Dioxide 22 Anion Gap 17 BUN 28 H Creatinine 2.3 H Est GFR ( Amer) 38 Est GFR (Non-Af Amer) 32 POC Glucose (mg/dL) Random Glucose 159 H Calcium 10.5 H Total Bilirubin AST ALT Alkaline Phosphatase Total Protein Albumin Globulin Albumin/Globulin Ratio Urine Color Urine Clarity Urine pH Ur Specific [place] Urine Protein Urine Glucose (UA) Urine Ketones Urine Blood Urine Nitrate Urine Bilirubin Urine Urobilinogen Ur Leukocyte Esterase Urine RBC (Auto) Urine Microscopic WBC Ur Squamous Epith Cells Urine Bacteria Blood Type O POSITIVE Antibody Screen Negative BBK History Checked Patient has bt
--- NOTE | 2018-12-18 14:25 | CT ---
Date of service: 12/17/2018 PROCEDURE: CT Abdomen and Pelvis without intravenous contrast HISTORY: constipation COMPARISON: Noncontrast abdomen and pelvis CT 10/04/2018. TECHNIQUE: Helical CT of the abdomen and pelvis was performed without oral or intravenous contrast as per referring physician request. Coronal and sagittal reformats were generated. Radiation dose: Total exam DLP = 866.95 mGy-cm. This CT exam was performed using one or more of the following dose reduction techniques: Automated exposure control, adjustment of the mA and/or kV according to patient size, and/or use of iterative reconstruction technique. IV contrast: None FINDINGS: LOWER THORAX: Limited bilateral basilar dependent atelectasis identified as well as a small hiatal hernia once again. LIVER: Unremarkable. No gross lesion or ductal dilatation. GALLBLADDER AND BILE DUCTS: Unremarkable. PANCREAS: Unremarkable. No gross lesion or ductal dilatation. SPLEEN: Unremarkable. ADRENALS: Unremarkable. No mass. KIDNEYS AND URETERS: Gross bilateral hydronephrosis is appreciate well as hydroureter with prior suprapubic catheter removed in the interval. No radiodense urolithiasis bilaterally. Persistent limited perinephric streaky changes remain. VASCULATURE: Unremarkable. No aortic aneurysm. No aortic atherosclerotic calcification or mural plaque present. BOWEL: The bowel is not appear obstructed. Retained fecal material is prominent throughout the colon though the amount is less than previously shown. Still, mild constipation suspected. Clinically correlate further. There is a thickened area at the posterior wall of the inferior rectum suspicious for neoplasm though this is not definite. No perirectal lymphadenopathy appreciable grossly. APPENDIX: No CT evidence of appendicitis. PERITONEUM: Unremarkable. No free fluid. No free air. LYMPH NODES: Unremarkable. No enlarged lymph nodes. BLADDER: Irregular thickened urinary bladder wall is appreciate which could reflect cystitis or even neoplasm. REPRODUCTIVE: Calcifications are identified within the central prostate gland which is normal size overall. BONES: No acute fracture. OTHER FINDINGS: None. IMPRESSION: Prominent retained fecal material seen throughout the colon though not as prominent as previously shown in prior CT 10/04/2018. Constipation likely. Clinically correlate further. Mural thickening the posterior wall of the lower rectum is questioned. Clinically core for potential neoplasm. Gross bilateral hydroureteronephrosis reiterated with mural thickening of the urinary bladder potentially reflecting cystitis or even neoplasm. Prior suprapubic catheter removed in the interval.
--- NOTE | 2018-12-18 15:02 | CP.PCM.DIS ---
<Ernesto Martinez - Last Filed: 12/18/18 15:09> Provider - Provider Date of Admission: 12/17/18 21:19 Attending physician: Fina Steward MD Consults: 12/17/18 21:22 Physician Consult Stat Comment: Consulting Provider: Herrera Barreto Consulting Physician: Herrera Barreto Reason for Consult: brain mass Additional Comments: 12/18/18 07:00 Physician Consult Routine Comment: Consulting Provider: Emiliana Rothman Consulting Physician: Emiliana Rothman Reason for Consult: Intracranial mass, edema 12/18/18 07:23 Psychiatry Consult Routine Comment: Consulting Provider: Cassie Felder Consulting Physician: Cassie Felder Reason for Consult: depression, changes in behavior Time Spent in preparation of Discharge (in minutes): 35 Diagnosis - Discharge Diagnosis (1) Brain mass Status: Acute Comment: transfer to [facility] for further treatment Hospital Course - Lab Results Lab Results: Most Recent Lab Values WBC 15.0 K/uL (4.8-10.8) H 12/18/18 04:20 RBC 3.99 Mil/uL (4.40-5.90) L 12/18/18 04:20 Hgb 11.3 g/dL (12.0-18.0) L 12/18/18 04:20 Hct 33.8 % (35.0-51.0) L 12/18/18 04:20 MCV 84.9 fl (80.0-94.0) 12/18/18 04:20 MCH 28.3 pg (27.0-31.0) 12/18/18 04:20 MCHC 33.3 g/dL (33.0-37.0) 12/18/18 04:20 RDW 16.6 % (11.5-14.5) H 12/18/18 04:20 Plt Count 332 K/uL (130-400) 12/18/18 04:20 MPV 7.8 fl (7.2-11.7) 12/17/18 19:20 Neut % (Auto) 73.1 % (50.0-75.0) 12/17/18 19:20 Lymph % (Auto) 16.1 % (20.0-40.0) L 12/17/18 19:20 [place] % (Auto) 9.4 % (0.0-10.0) 12/17/18 19:20 Eos % (Auto) 1.1 % (0.0-4.0) 12/17/18 19:20 Baso % (Auto) 0.3 % (0.0-2.0) 12/17/18 19:20 Neut # (Auto) 8.8 K/uL (1.8-7.0) H 12/17/18 19:20 Lymph # (Auto) 1.9 K/uL (1.0-4.3) 12/17/18 19:20 [place] # (Auto) 1.1 K/uL (0.0-0.8) H 12/17/18 19:20 Eos # (Auto) 0.1 K/uL (0.0-0.7) 12/17/18 19:20 Baso # (Auto) 0.0 K/uL (0.0-0.2) 12/17/18 19:20 PT 13.0 Seconds (9.8-13.1) 12/17/18 21:29 INR 1.1 12/17/18 21:29 APTT 39.2 Seconds (25.6-37.1) H 12/17/18 21:29 Sodium 142 mmol/l (132-148) 12/18/18 04:20 Potassium 4.1 MMOL/L (3.6-5.0) 12/18/18 04:20 Chloride 107 mmol/L (98-107) 12/18/18 04:20 Carbon Dioxide 22 mmol/L (22-30) 12/18/18 04:20 Anion Gap 17 (10-20) 12/18/18 04:20 BUN 28 mg/dl (9-20) H 12/18/18 04:20 Creatinine 2.3 mg/dl (0.8-1.5) H 12/18/18 04:20 Est GFR ( Amer) 38 12/18/18 04:20 Est GFR (Non-Af Amer) 32 12/18/18 04:20 POC Glucose (mg/dL) 104 mg/dL (65-110) 12/17/18 19:04 Random Glucose 159 mg/dL (75-110) H 12/18/18 04:20 Calcium 10.5 mg/dL (8.4-10.2) H 12/18/18 04:20 Total Bilirubin 0.2 mg/dl (0.2-1.3) 12/17/18 19:20 AST 24 U/L (17-59) 12/17/18 19:20 ALT 21 U/L (21-72) 12/17/18 19:20 Alkaline Phosphatase 112 U/L (38-126) 12/17/18 19:20 Total Protein 7.9 G/DL (6.3-8.2) 12/17/18 19:20 Albumin 4.2 g/dL (3.5-5.0) 12/17/18 19:20 Globulin 3.7 gm/dL (2.2-3.9) 12/17/18 19:20 Albumin/Globulin Ratio 1.1 (1.0-2.1) 12/17/18 19:20 Urine Color Yellow (YELLOW) 12/17/18 19:57 Urine Clarity Slighty-cloudy (Clear) 12/17/18 19:57 Urine pH 6.0 (5.0-8.0) 12/17/18 19:57 Ur Specific [place] 1.011 (1.003-1.030) 12/17/18 19:57 Urine Protein Negative mg/dL (NEGATIVE) 12/17/18 19:57 Urine Glucose (UA) Neg mg/dL (NEGATIVE) 12/17/18 19:57 Urine Ketones Negative mg/dL (NEGATIVE) 12/17/18 19:57 Urine Blood Negative (NEGATIVE) 12/17/18 19:57 Urine Nitrate Negative (NEGATIVE) 12/17/18 19:57 Urine Bilirubin Negative (NEGATIVE) 12/17/18 19:57 Urine Urobilinogen 0.2-1.0 mg/dL (0.2-1.0) 12/17/18 19:57 Ur Leukocyte Esterase Mod Lopez/uL (Negative) 12/17/18 19:57 Urine RBC (Auto) 3 /hpf (0-3) 12/17/18 19:57 Urine Microscopic WBC 68 /hpf (0-5) H 12/17/18 19:57 Ur Squamous Epith Cells < 1 /hpf (0-5) 12/17/18 19:57 Urine Bacteria Rare (<OCC) 12/17/18 19:57 Blood Type O POSITIVE 12/17/18 21:29 Antibody Screen Negative 12/17/18 21:29 BBK History Checked Patient has bt 12/17/18 21:29 - Hospital Course Hospital Course: 38 y/o male with with anxiety, depression, schizophrenia, HTN and CKD who came in with LOPEZ/N/V, and was found to have an IC mass. History is largely from mother. She states that patient has 'not been himself' and 'not walking right' for the past week and has also been complaining of intermittent headaches for the past 3-4 days. LOPEZ seemed to be responding to Tylenol at home. In house, he underwent MRI imaging and was found to have a pontine mass and midline shift and edema. Neurosurgery evaluated the pt and imaging, and recommended transfer to a tertiary center. The patient was transferred to [facility] for further evaluation and treatment. Discharge Exam - Head Exam Head Exam: ATRAUMATIC, NORMOCEPHALIC - Eye Exam Eye Exam: EOMI Pupil Exam: PERRL - ENT Exam ENT Exam: Mucous Membranes Moist - Respiratory Exam Respiratory Exam: Clear to PA & Lateral, NORMAL BREATHING PATTERN, UNREMARKABLE - Cardiovascular Exam Cardiovascular Exam: REGULAR RHYTHM, RRR, +S1, +S2. absent: JVD, Rubs, Systolic Murmur - GI/Abdominal Exam GI & Abdominal Exam: Normal Bowel Sounds, Unremarkable - Extremities Exam Extremities exam: normal capillary refill, normal inspection, pedal pulses present - Neurological Exam Neurological exam: Alert, CN II-XII Intact, Oriented x3 - Psychiatric Exam Psychiatric exam: Normal Affect, Normal Mood Discharge Plan - Follow Up Plan Condition: SERIOUS Disposition: Trans to Other Acute Care Hosp Additional Instructions: transfer to [facility] for further care and monitoring <Nidhi Mejia - Last Filed: 12/18/18 15:46> Provider - Provider Date of Admission: 12/17/18 21:19 Attending physician: Fina Steward MD Consults: 12/17/18 21:22 Physician Consult Stat Comment: Consulting Provider: Herrera Barreto Consulting Physician: Herrera Barreto Reason for Consult: brain mass Additional Comments: 12/18/18 07:00 Physician Consult Routine Comment: Consulting Provider: Emiliana Rothman Consulting Physician: Emiliana Rothman Reason for Consult: Intracranial mass, edema 12/18/18 07:23 Psychiatry Consult Routine Comment: Consulting Provider: Cassie Felder Consulting Physician: Cassie Felder Reason for Consult: depression, changes in behavior Hospital Course - Lab Results Lab Results: Most Recent Lab Values WBC 15.0 K/uL (4.8-10.8) H 12/18/18 04:20 RBC 3.99 Mil/uL (4.40-5.90) L 12/18/18 04:20 Hgb 11.3 g/dL (12.0-18.0) L 12/18/18 04:20 Hct 33.8 % (35.0-51.0) L 12/18/18 04:20 MCV 84.9 fl (80.0-94.0) 12/18/18 04:20 MCH 28.3 pg (27.0-31.0) 12/18/18 04:20 MCHC 33.3 g/dL (33.0-37.0) 12/18/18 04:20 RDW 16.6 % (11.5-14.5) H 12/18/18 04:20 Plt Count 332 K/uL (130-400) 12/18/18 04:20 MPV 7.8 fl (7.2-11.7) 12/17/18 19:20 Neut % (Auto) 73.1 % (50.0-75.0) 12/17/18 19:20 Lymph % (Auto) 16.1 % (20.0-40.0) L 12/17/18 19:20 [place] % (Auto) 9.4 % (0.0-10.0) 12/17/18 19:20 Eos % (Auto) 1.1 % (0.0-4.0) 12/17/18 19:20 Baso % (Auto) 0.3 % (0.0-2.0) 12/17/18 19:20 Neut # (Auto) 8.8 K/uL (1.8-7.0) H 12/17/18 19:20 Lymph # (Auto) 1.9 K/uL (1.0-4.3) 12/17/18 19:20 [place] # (Auto) 1.1 K/uL (0.0-0.8) H 12/17/18 19:20 Eos # (Auto) 0.1 K/uL (0.0-0.7) 12/17/18 19:20 Baso # (Auto) 0.0 K/uL (0.0-0.2) 12/17/18 19:20 PT 13.0 Seconds (9.8-13.1) 12/17/18 21:29 INR 1.1 12/17/18 21:29 APTT 39.2 Seconds (25.6-37.1) H 12/17/18 21:29 Sodium 142 mmol/l (132-148) 12/18/18 04:20 Potassium 4.1 MMOL/L (3.6-5.0) 12/18/18 04:20 Chloride 107 mmol/L (98-107) 12/18/18 04:20 Carbon Dioxide 22 mmol/L (22-30) 12/18/18 04:20 Anion Gap 17 (10-20) 12/18/18 04:20 BUN 28 mg/dl (9-20) H 12/18/18 04:20 Creatinine 2.3 mg/dl (0.8-1.5) H 12/18/18 04:20 Est GFR ( Amer) 38 12/18/18 04:20 Est GFR (Non-Af Amer) 32 12/18/18 04:20 POC Glucose (mg/dL) 104 mg/dL (65-110) 12/17/18 19:04 Random Glucose 159 mg/dL (75-110) H 12/18/18 04:20 Calcium 10.5 mg/dL (8.4-10.2) H 12/18/18 04:20 Total Bilirubin 0.2 mg/dl (0.2-1.3) 12/17/18 19:20 AST 24 U/L (17-59) 12/17/18 19:20 ALT 21 U/L (21-72) 12/17/18 19:20 Alkaline Phosphatase 112 U/L (38-126) 12/17/18 19:20 Total Protein 7.9 G/DL (6.3-8.2) 12/17/18 19:20 Albumin 4.2 g/dL (3.5-5.0) 12/17/18 19:20 Globulin 3.7 gm/dL (2.2-3.9) 12/17/18 19:20 Albumin/Globulin Ratio 1.1 (1.0-2.1) 12/17/18 19:20 Urine Color Yellow (YELLOW) 12/17/18 19:57 Urine Clarity Slighty-cloudy (Clear) 12/17/18 19:57 Urine pH 6.0 (5.0-8.0) 12/17/18 19:57 Ur Specific [place] 1.011 (1.003-1.030) 12/17/18 19:57 Urine Protein Negative mg/dL (NEGATIVE) 12/17/18 19:57 Urine Glucose (UA) Neg mg/dL (NEGATIVE) 12/17/18 19:57 Urine Ketones Negative mg/dL (NEGATIVE) 12/17/18 19:57 Urine Blood Negative (NEGATIVE) 12/17/18 19:57 Urine Nitrate Negative (NEGATIVE) 12/17/18 19:57 Urine Bilirubin Negative (NEGATIVE) 12/17/18 19:57 Urine Urobilinogen 0.2-1.0 mg/dL (0.2-1.0) 12/17/18 19:57 Ur Leukocyte Esterase Mod Lopez/uL (Negative) 12/17/18 19:57 Urine RBC (Auto) 3 /hpf (0-3) 12/17/18 19:57 Urine Microscopic WBC 68 /hpf (0-5) H 12/17/18 19:57 Ur Squamous Epith Cells < 1 /hpf (0-5) 12/17/18 19:57 Urine Bacteria Rare (<OCC) 12/17/18 19:57 Blood Type O POSITIVE 12/17/18 21:29 Antibody Screen Negative 12/17/18 21:29 BBK History Checked Patient has bt 12/17/18 21:29 Attending/Attestation - Attestation I have personally seen and examined this patient.: Yes I have fully participated in the care of the patient.: Yes I have reviewed all pertinent clinical information, including history, physical exam and plan: Yes Notes (Text): 1. 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 MRI of the Brain: -Findings suspicious for possible primary brain neoplasm at the right cerebellum and vermis resulting in obstructive hydrocephalus with transependymal edema surrounding the bilateral lateral ventricles. The differential diagnosis would be metastasis or abscess. Mass effect is exerted toward the left, impressing the lower brainstem and medial left cerebellar hemisphere as well. Lack of intravenous contrast inadequately evaluates this lesion and contrast enhanced MRI is advised for added characterization. - Decadron 10 mg IV q 8 and Mannitol started - Neurosurgery consulted- rec transfer to [facility] - Neurology consulted- case discussed with Dr Rothman - rec Decadron and Mannitol - discussed with family need for transfer for higher level of care and - mother who is POA agreed - Referred pt to the [facility] and pt was accepted by the Neurosurgery team 2. Schizophrenia - Psych consulted - rec to continue Psych meds - Pt on Clozapine, Trileptal and Haldol 3. CKD Stage III Hx of Obstructive Uropathy , Renal Stones IV ceftriaxone started for possible infection ( 68 WBC in urine with mod leukoest) 4. HTN, Hypertensive Urgency -cont Norvasc and Metoprolol 5. Constipation - stool softener - laxative
[2018-12-18 16:19] VITALS: TEMP 98.9
--- NOTE | 2018-12-18 16:26 | CARD ---
APPROVED REPORT Date of service: 12/17/2018 EKG Measurement Heart [id number] <Conclusion> Sinus tachycardia Possible Inferior infarct, age undetermined Abnormal ECG
[2018-12-18] MEDS ORDERED: Mannitol 12.5 gm/50 ml Inj IV SCH (17:00)
[2018-12-18 18:23] VITALS: BP 129/90; PULSE 109; RESP 16; O2SAT 97
--- NOTE | 2018-12-19 08:22 | CON ---
DATE: 12/18/2018 HISTORY OF PRESENT ILLNESS: This is a 38-year-old male with host of medical problems, schizophrenia, apparently was having several days of nausea, vomiting, and headache, admitted to the ER, and found to have a posterior fossa mass, admitted to the ICU. Interviewing him today, he actually states he is asymptomatic. He was put on high dose steroids, and this was completely successful. He denies any nausea or vomiting. He is actually eating. He denies any headache. He denies any other symptoms at this time. PAST MEDICAL HISTORY: Reviewed in the EMR. MEDICATIONS: Reviewed in the EMR. ALLERGIES: REVIEWED IN THE EMR. PHYSICAL EXAMINATION: GENERAL: He is quiet, awake, and alert. He is oriented x3. He does follow commands. HEENT: Pupils are equally reactive. EOMs are full. Face is symmetric. He states his hearing is equal on both sides. NEUROLOGIC: Good [id number] bilaterally. No drift. A 5/5 strength. LABORATORY DATA: MRI documents a cystic lesion in the right cerebellopontine angle, it is causing considerable compression of the right cerebellum and the suzi. There is a [id number] hydrocephalus. IMPRESSION AND PLAN: This really is not a case that could or should be handled in [facility], requires a delicate extensive microneurosurgical procedure to extricate. We do not have the microneurosurgical instruments. We do not have a neurosurgical intensive care unit. I am in full agreement with evaluation that the patient should be transferred to tertiary care facility whether it is a dedicated neurosurgical program in intensive care unit. I explained all the above to the patient. Herrera Barreto MD
== END 2018-12-18 20:00 | disposition short-term general hospital (02) | DRG 70 ==
LOC: H.ER 18:32 → H.ERHOLD 21:19 → H.ICU/CCU 23:39
PROVIDERS: ADMIT Internal Medicine; ATTEND Internal Medicine
DX: G93.9 Disorder of brain, unspecified (principal); G93.6 Cerebral edema; G93.5 Compression of brain; N13.30 Unspecified hydronephrosis; G91.1 Obstructive hydrocephalus; I12.9 Hypertensive chronic kidney disease with stage 1 through stage 4 chronic kidney disease, or unspecified chronic kidney disease; N18.3 Chronic kidney disease, stage 3 (moderate); F20.9 Schizophrenia, unspecified; R26.9 Unspecified abnormalities of gait and mobility; F41.9 Anxiety disorder, unspecified; F32.9 Major depressive disorder, single episode, unspecified; I16.0 Hypertensive urgency; K56.41 Fecal impaction; F17.210 Nicotine dependence, cigarettes, uncomplicated; R16.0 Hepatomegaly, not elsewhere classified